=== PATIENT | male | born 1955 | race Caucasian/White ===

== ENCOUNTER 2021-02-20 09:22 | Inpatient (IN) | payer MEDICARE, MEDICAID, SELFPAY ==
[2021-02-20] VITALS (13 sets, daily range): BP systolic 101–144; BP diastolic 61–108; PULSE 95–149; RESP 16–32; TEMP 36.3–36.8; O2SAT 97–100; BMI 34.2
--- NOTE | ~2021-02-20 | XR_ITS ---
EXAMINATION: XR chest 1V portable EXAM DATE: 02/20/2021 11:15 INDICATION: Weakness. TECHNIQUE: Portable AP frontal chest x-ray was obtained. There is no prior study for comparison. FINDINGS: Suspect some ill-defined left basilar airspace disease could be developing acute infectious process. The cardiomediastinal silhouette is prominent but magnified on this AP technique. There is no pneumothorax suspected. There are no pleural effusions. There are no osseous abnormalities identif ied. IMPRESSION: Ill-defined left basilar opacity could be developing acute infectious process. Reviewed, dictated and finalized at location A. IMPRESSION: Ill-defined left basilar opacity could be developing acute infectio us process.
--- NOTE | ~2021-02-20 | US_ITS ---
EXAMINATION: US venous doppler [facility] DATE: 02/20/2021 11:58 INDICATION: Weakness. TECHNIQUE: Grayscale ultrasound images without and with compression and Doppler ultrasound images of the bilateral lower extremity veins were obtained. COMPARISON: None. FINDINGS: The visualized portions of right common femoral vein, profunda (deep) femoral vein, femoral vein, pop liteal vein, peroneal veins, posterior tibial veins, and greater saphenous vein outflow are patent. The visualized portions of left common femoral vein, profunda femoral vein, femoral vein, popliteal v ein, peroneal veins, posterior tibial veins, and greater saphenous vein outflow are patent. IMPRESSION: 1. No deep venous thrombosis. Reviewed, dictated and finalized at location A.
--- NOTE | ~2021-02-20 | US_ITS ---
EXAMINATION: US abdomen limited DATE: 02/22/2021 10:49 INDICATION: Abnormal liver function tests. TECHNIQUE: Multiple grayscale and Doppler ultrasound images of the abdomen were obtained. COMPARISON: CT abdomen and pelvis 02/20/2021 FINDINGS: The visualized portion of the head of the pancreas is normal. There is diffuse hepatic stea tosis. No liver surface nodularity. There is normal flow in main portal vein. The gallbladder is cont racted. No gallstones or sonographic Moreno sign. The common duct is normal and measures 3 mm. IMPRESSION: 1. Diffuse hepatic steatosis. Reviewed, dictated and finalized at location A.
--- NOTE | ~2021-02-20 | CT_ITS ---
EXAMINATION: CTA chest PE protocol EXAM DATE: 02/28/2021 14:28 INDICATION: Hypoxia, shortness of breath. Renal cell cancer. TECHNIQUE: Spiral CTA of the chest (pulmonary arteries) was performed with 100 cc Omnipaque 350 intr avenous contrast injection. Images were acquired during the pulmonary arterial phase. Coronal maxi mum intensity projection 3D-reconstructions were created by the technologist on dedicated workstation . Axial, coronal and sagittal reformatted images were reviewed. The dose-length product (DLP) for t his examination was 995.23 mGy-cm. The exposure was tailored according to patient size (auto mA exp osure control), and iterative reconstruction (ASIR) was used as additional dose reduction technique. Comparison is made to prior examination from 02/20/2021. FINDINGS: Pulmonary arteries are well opacified and without intraluminal filling defects. No thora cic aortic dissection. Dependent subsegmental atelectasis. There are no pleural or pericardial effu sions. Tracheobronchial tree is patent. There is no mediastinal, hilar or axillary lymphadenopath y. There is no pneumothorax. Mild cardiomegaly. There is mild coronary arterial calcification, a rterial sclerosis. Development of small to moderate perihepatic ascites. Contracted gallbladder. Fuller bacute appearing sternal and rib fractures. Mild lower thoracic chronic appearing compression fractur es. IMPRESSION: 1. Interval development mild cardiomegaly. 2. Persistent dependent subsegmental atelectasis. 3. Small to moderate perihepatic ascites. 4. Subacute sternal, rib fractures. Reviewed, dictated and finalized at location B.
--- NOTE | ~2021-02-20 | CT_ITS ---
EXAMINATION: CT chest abdomen pelvis wo con DATE: 02/20/2021 15:39 INDICATION: Neoplasm. Fall one week prior and weakness. TECHNIQUE: Computed tomography (CT) of the chest, abdomen, and pelvis was performed without intraveno us contrast. Automated exposure control and iterative reconstruction technique were employed. The dos e-length product was 1564.26 mGy-cm. COMPARISON: None FINDINGS: CHEST CT: Dependent atelectasis in the bilateral lower lobes. There is additional bandlike discoid atelectasis in the right lower lobe and a linear discoid atelectasis in the left lower lobe and lingula. No pneum onia, pulmonary edema, pleural effusion or pneumothorax. Heart size is normal. Atherosclerotic lockwood ry artery calcification. No pericardial effusion. Thoracic aorta is normal in caliber with mild scatt ered atherosclerotic calcific location. No pathologically enlarged thoracic lymphadenopathy. Old heal ed sternal fracture. ABDOMEN/PELVIS CT: Diffuse hepatic steatosis. Gallbladder, spleen and bilateral adrenal glands are normal. Suture lines and scarring at the upper pole of the right kidney suggesting prior partial nephrectomy for renal jany l carcinoma. Correlate with surgical history. Low-attenuation bilateral renal cysts, the largest on t he left at the upper pole measuring 3.5 cm. Soft tissues about the tail of the pancreas which could r epresent a combination of atherosclerotic calcification of the splenic artery and destructive parench ymal skin ulceration at the periphery of the pancreas, bladder and potentially related to sequela of chronic pancreatitis. Couple gas-filled duodenal diverticulum along the medial side of the second por tion of the duodenum. Retroperitoneal edema/fat stranding beginning in the upper abdomen centered abo ut the head of the pancreas and extending caudally into the pelvis. Mild scattered colonic diverticul osis without adjacent inflammatory change to suggest diverticulitis. No bowel obstruction. The previo us noted retroperitoneal inflammatory stranding extends caudally along the bilateral anterior pararen al spaces, and the right abutting the otherwise normal-appearing appendix. No more focal periappendic eal inflammatory stranding to more specifically suggest acute appendicitis. Bladder is normal. No armand e intraperitoneal gas or fluid. No pathologically enlarged abdominal or pelvic lymphadenopathy. Calci fied likely injection granulomata the subcutaneous fat at the bilateral buttocks. Multiple chronic ap pearing compression fractures with mild vertebral body height loss in the lumbar and lower thoracic s pine. IMPRESSION: 1. Diffuse retroperitoneal edema extending from the abdomen into the pelvis. There is some calcificat ion at the tail the pancreas suggesting possibility of acute on chronic pancreatitis and would correl ate with amylase and lipase levels. No other acute intrathoracic, abdominal or pelvic process. 2. Diffuse hepatic steatosis. 2. Scarring and suture lines at the upper pole of the right kidney consistent with likely partial nep hrectomy for renal cell carcinoma. Correlate with surgical history. 3. Mild scattered diverticulosis. Reviewed, dictated and finalized at location B. IMPRESSION: 1. Diffuse retroperitoneal edema extending from the abdomen into the pelvis. Th ere is some calcification at the tail the pancreas suggesting possibility of ac duane on chronic pancreatitis and would correlate with amylase and lipase levels. No other acute intrathoracic, abdominal or pelvic process. 2. Diffuse hepatic steatosis. 2. Scarring and suture lines at the upper pole of the right kidney consistent w ith likely partial nephrectomy for renal cell carcinoma. Correlate with surgica l history. 3. Mild scattered diverticulosis.
--- NOTE | ~2021-02-20 | US_ITS ---
EXAMINATION: US venous doppler LE EXAM DATE: 02/28/2021 14:12 INDICATION: Hypoxia. TECHNIQUE: Multiple grayscale, color flow and Doppler images of the lower extremity deep venous syste ms bilaterally were obtained and reviewed. Comparison is made to prior examination from 02/20/2021. FINDINGS: Right side: The right common femoral, femoral and profunda veins demonstrate normal color flow, respi ratory variation, augmentation and compressibility. Compressibility, color flow confirmed within the right popliteal, posterior tibial, peroneal, and greater saphenous veins. Left side: The left common femoral, femoral and profunda veins demonstrate normal color flow, respira tory variation, augmentation and compressibility. Compressibility, color flow confirmed within the l eft popliteal, posterior tibial, peroneal, and greater saphenous veins. IMPRESSION: 1. No lower extremity deep venous thrombosis bilaterally. Reviewed, dictated and finalized at location B.
--- NOTE | ~2021-02-20 | CT_ITS ---
EXAMINATION: CT brain wo [facility] EXAM DATE: 02/20/2021 12:06 INDICATION: Fall, weakness. TECHNIQUE: Spiral CT of the head was performed without contrast. Axial, coronal and sagittal images were reviewed. The dose-length product (DLP) for this examination was 681.00 mGy-cm. The exposure w as tailored according to patient size, and iterative reconstruction (ASIR) was used as additional dos e reduction technique. There is no prior study for comparison. FINDINGS: There is no acute intraparenchymal hemorrhage. No evidence of intraparenchymal brain mass lesion. No evidence of acute infarction. Please note that initial head CT has limited sensitivity f or small or acute infarctions. There is mild to moderate periventricular and subcortical hypodensity, nonspecific but probably related to small vessel ischemic disease. There is mild to moderate promi nence of the sulci and ventricles related to cerebral atrophy. There is intracranial carotid arteri osclerosis. There are no extra-axial collections. There is no mass effect or midline shift. The or bits are unremarkable. Soft tissue is unremarkable. The visualized sinuses and mastoid air cells ar e well aerated. IMPRESSION: 1. No acute intracranial findings. 2. Chronic age related findings. Reviewed, dictated and finalized at location A.
--- NOTE | ~2021-02-20 | XR_ITS ---
EXAMINATION: XR chest 2V EXAM DATE: 02/27/2021 14:17 INDICATION: Hypoxia, dyspnea . TECHNIQUE: Frontal and lateral projections of the chest obtained and reviewed. Comparison is made to prior examination from 02/20/2021. FINDINGS: Low lung volume. Bibasilar airspace disease at least partly atelectasis given the volume l oss. Left basilar pneumonia not excludable. No confluent consolidation, pneumothorax or pleural effus ion suspected. There is no pneumothorax suspected. There are no pleural effusions. The cardiomediasti nal silhouette is prominent but magnified on this AP technique. There are no osseous abnormalities id entified. IMPRESSION: Bibasilar subsegmental atelectasis. Left basilar pneumonia not excludable. Reviewed, dictated and finalized at location B. IMPRESSION: Bibasilar subsegmental atelectasis. Left basilar pneumonia not excl udable.
--- NOTE | 2021-02-20 09:33 | ECG_ITS ---
Measurements Intervals [place] Rate: 131 P: MI: 0 QRS: 10 QRSD: 85 T: -9 QT: 349 QTc: 515 Interpretive Statements ATRIAL FIBRILLATION WITH RAPID VENTRICULAR RESPONSE BASELINE ARTIFACT- I, II, III, AVR, AVL, AVF, V1-V6 ABNORMAL ECG Electronically Signed On 02-20-2021 11:21:10 CDT by Jono Woods D.O.
[2021-02-20 10:38] LABS: Basophils Percent Auto 0.8 % (0.2-1.2); Eosinophils Absolute Auto 0.1 K/mm3 (0-0.3); Eosinophils Percent Auto 1.5 % (0-4.4); Hematocrit 46.4 % (42.0-52.0); Hemoglobin 14.7 g/dL (14.0-18.0); Immature Granulocyte Absolute 0.02 K/mm3 (0.00-0.031); Immature Granulocyte Percent A 0.4 % (0-0.5); Immature Platelet Fraction Pct 7.2 % (0.9-11.2); Lymphocytes Absolute Auto 0.97 K/mm3 (0.9-3.2); Lymphocytes Percent Auto 20.5 % (18.3-44.2); Mean Corpuscular HGB Conc 31.7 g/dl (32-36); Mean Corpuscular Volume 104.3 fl (80-100); Mean Platelet Volume 10.7 fl (7.4-10.4); Monocytes Absolute Auto 0.5 K/mm3 (0.1-0.6); Monocytes Percent Auto 10.4 % (2.6-8.5); Neutrophils Absolute Auto 3.1 K/mm3 (1.3-6.7); Neutrophils Percent Auto 66.4 % (45.5-73.1); Platelet Count Result 65 k/mm3 (150-375); Red Blood Count 4.45 M/mm3 (4.6-6.20); Red Cell Distribution Width 14.3 % (11.5-14.5); White Blood Count 4.7 K/mm3 (4.5-10.0)
[2021-02-20 10:52] LABS: Alanine Aminotransferase 49 U/L (4-50); Albumin Level 3.6 g/dL (3.5-5.1); Alkaline Phosphatase 309 U/L (38-126); Anion Gap 12 mmol/L (8-16); Aspartate Amino Transferase 82 U/L (17-59); Bilirubin,Total 5.2 mg/dL (0.2-1.3); Blood Urea Nitrogen 13 mg/dL (9-20); Calcium 9.1 mg/dL (8.4-10.2); Carbon Dioxide 24 mmol/L (22-30); Chloride 95 mmol/L (98-107); Estimated CRCL calculation 83 ml/min; Estimated Glomerular Filt Rate > 60; Glucose 90 mg/dL (65-110); Potassium 3.8 mmol/L (3.4-5.0); Sodium 131 mmol/L (137-145)
[2021-02-20 11:29] LABS: INR 1.1; Prothrombin Time 13.8 Seconds (11.1-14.7)
[2021-02-20 11:30] LABS: Partial Thromboplastin Time 35.6 SECONDS (22.3-36.8)
[2021-02-20 11:32] LABS: D Dimer 0.47 ug/mL (<0.48)
[2021-02-20 11:33] LABS: Lactic Acid Reflex 1.2 mmol/L (0.7-2.1)
[2021-02-20] MEDS: LACTATED RINGERS 1,000 ML 999 ML IV CONT (11:37)
[2021-02-20 11:44] LABS: Magnesium 1.9 mg/dL (1.6-2.3)
[2021-02-20 11:45] LABS: NT Pro B Type Natriuretic Pept 5120 pg/mL (5-100); Troponin I 0.021 ng/mL (0.000-0.034)
[2021-02-20 11:56] LABS: Creatine Kinase 474 U/L (55-170)
[2021-02-20] MEDS: dilTIAZem HCl INJ 25 MG/5 ML VIAL 15 MG IV PUSH (13:06)
[2021-02-20 13:44] LABS: Add Urine Microscopic? YES; Appearance Urine Clear (Clear); Bilirubin Urine Negative (Negative); Blood Urine 1+ (Negative); Color Urine Amber (Yellow); Glucose Urine UA Negative (Negative); Ketones Urine 1+ mg/dL (Negative); Leukocyte Esterase Ur Negative LEU/UL (Negative); Nitrate Urine Negative (Negative); Protein Urine 1+ mg/dL (Negative); RBC Urine 0-2 /hpf (0-2); Specific Grav Ur 1.021 (1.001-1.035)
--- NOTE | 2021-02-20 13:52 | ED.GENADULT ---
HPI - General Adult General Chief complaint: Weakness <Dimitrios Alegre PA-C - Last Filed: 02/20/21 14:45> Stated complaint: weakness <Dimitrios Alegre PA-C - Last Filed: 02/20/21 14:45> Time Seen by Provider: 02/20/21 10:52 <Dimitrios Alegre PA-C - Last Filed: 02/20/21 14:45> Source: patient, EMS and RN notes reviewed <Dimitrios Alegre PA-C - Last Filed: 02/20/21 14:45> Mode of arrival: EMS <Dimitrios Alegre PA-C - Last Filed: 02/20/21 14:45> Limitations: no limitations <Dimitrios Alegre PA-C - Last Filed: 02/20/21 14:45> History of Present Illness HPI narrative: Patient is a 65-year-old male who presents from home per EMS noting that for the last week he has lied on the floor with inability to get up was at home by himself he attributes this to weakness patient notes history of possible kidney cancer untreated as well as other medical history for which she has not taken any of his prescribed medications in the last year he is a poor historian to his medication history on arrival he does not appear distress but is chronically ill-appearing patient notes he has been unable to get up he has not been eating or drinking. <Dimitrios Alegre PA-C - Last Filed: 02/20/21 14:45> Related Data Allergies/adverse reactions: Allergies Allergy/AdvReac Type Severity Reaction Status Date / Time No Known Allergies Allergy Unverified 02/16/15 18:31 <Dimitrios Alegre PA-C - Last Filed: 02/20/21 14:45> Review of Systems Review of Systems: All systems reviewed & are unremarkable except as noted in HPI and below <Dimitrios Alegre PA-C - Last Filed: 02/20/21 14:45> FOR[facility]LY [facility], [facility] Past Medical History Medical History: Medical History (Updated 02/20/21 @ 16:10 by Cat Ndiaye PA-C) Atrial fibrillation Hypertension Noncompliance <Dimitrios Alegre PA-C - Last Filed: 02/20/21 14:45> Surgical History Surgical History: Surgical History History of orthopedic surgery <Dimitrios Alegre PA-C - Last Filed: 02/20/21 14:45> Social History Social History: Social History (Updated 02/20/21 @ 16:05 by Cat Ndiaye PA-C) Social History: Surrogate decision maker: Wen Harden, significant other. Code status: Full code. Smoking status: Never smoker Additional living arrangements comments: Resides in [place] with his significant other. Additional occupation/education comments: Retired. <Dimitrios Alegre PA-C - Last Filed: 02/20/21 14:45> Exam Narrative: GENERAL: Chronically ill l-appearing, obese, and in no acute distress. HEAD: Normocephalic, atraumatic. EYES: PERRLA and EOMI. ENT: Nares clear, no rhinorrhea or epistaxis. Mucous membranes dry. NECK: Supple. No adenopathy or masses. CHEST: Clear to auscultation. No respiratory distress. No wheezes rales or rhonchi HEART: Irregularly irregular rate and rhythm. No murmur heard. Normal peripheral pulses. ABDOMEN: Soft, nontender, nondistended EXTREMITIES: Normal range of motion. 1+ edema to the lower extremities SKIN: Warm, dry, no rash. NEURO: No focal deficits. Alert and oriented x3. Cranial nerves II through XII grossly intact PSYCH: Normal mood and affect. <Dimitrios Alegre PA-C - Last Filed: 02/20/21 14:45> Course Course Emergency Course: Patient presented for evaluation of weakness was found to be in A. fib with RVR started on Cardizem drip after bolus will be placed in hospital for further evaluation to the hospitalist service who wants a CAT scan chest abdomen pelvis for concern for cancer given his history of untreated kidney cancer that he reports patient at this time is in the room in no distress agreeing to stay in hospital he is aware of his case findings treatment plan and diagnosis and agrees with the plan for inpatient therapy given his weakness. Imaging and blood work was obtained. <JULIETTE Ricketts
[2021-02-20 13:59] LABS: Amphetamine Screen Urine Negative (Negative); Barbiturate Screen Urine Negative (Negative); Benzodiazepines Screen Urine Positive (Negative); Cannabinoid Screen Urine Negative (Negative); Cocaine Screen Urine Negative (Negative); Methadone Screen Urine Negative (Negative); Opiate Screen Urine Negative (Negative); Phencyclidine Screen Urine Negative (Negative)
[2021-02-20 14:34] LABS: Troponin I 0.018 ng/mL (0.000-0.034)
[2021-02-20] MEDS: SODIUM CHLORIDE 0.9% IV 1,000 ML 75 ML IV CONT (15:03)
[2021-02-20] MEDS: LORazepam INJ (*CRX) 2 MG/ML VIAL 0.5 MG IV PUSH (15:03)
[2021-02-20 15:29] LABS: Cholesterol 152 mg/dL (0-200); HDL Direct 68 mg/dL; Triglycerides 111 mg/dL (<150)
[2021-02-20 15:42] LABS: LDL Cholesterol Direct 63 mg/dL
--- NOTE | 2021-02-20 16:00 | PM.IMHP ---
H&P: HPI History of Present Illness Date/Time: 02/20/21 16:00 Chief Complaint: Weakness. Narrative: This is a 65-year-old male with history of hypertension, atrial fibrillation, and anxiety who presented to the emergency department earlier today via EMS from home for evaluation of weakness. He is not a great historian and as such some of the following is obtained via a review of his electronic medical records. I have been trying to get a hold of his significant other, Wen, to no avail. The patient lives at home with his girlfriend who has reportedly been out of town for a week. When she returned home today, he was found lying on the floor and he was brought in today via EMS. He is not able to tell me exactly when he fell but he does remember feeling a bit dizzy the next thing he knew he woke up on the floor. He believes he has been on the floor for several days. He denies injuring himself in the fall but somewhat unusually he was not able to get himself up nor was he able to crawl to a phone to call for help. After lot of repeat questioning, the patient does admit that he has a history of drinking alcohol daily, at least 5 beers a day, and he tells me that he quit drinking about 2 weeks ago. He also tells me he has a history of alcohol withdrawal seizures though I am not sure the information he is giving me is 100% accurate. In any event he was found to be in atrial fibrillation with rapid ventricular response for which he has been started on a Cardizem drip and admitted to IMU. At the time my evaluation he has no specific complaints and tells me he is feeling better. He specifically denies current headache, neck ache, auditory and visual changes, focal weakness, paresthesias, chest pain, pleuritic pain, shortness of breath, cough, cold and flu symptoms, abdominal pain, nausea, vomiting, diarrhea, and dysuria. He does admit to not always being compliant with his home medications though he is requesting Xanax at this time. Review of Systems Review of Systems: Twelve systems were reviewed with pertinent positives and negatives as per HPI. Limited as he is not a great historian as above. Except as documented in HPI, all systems were reviewed and are negative. [facility] Past Medical History Medical History (Updated 02/20/21 @ 23:13 by Cat Ndiaye PA-C) Anxiety Atrial fibrillation Cerebrovascular accident Daily consumption of alcohol Gastroesophageal reflux disease Hypertension Noncompliance Renal cell carcinoma of right kidney Surgical History Surgical History (Updated 02/20/21 @ 23:05 by Cat Ndiaye PA-C) History of partial nephrectomy Right partial nephrectomy for renal cell carcinoma. History of right knee surgery Family History Family History (Updated 02/20/21 @ 23:06 by Cat Ndiaye PA-C) Other Family history unknown Social History Social History (Updated 02/20/21 @ 23:06 by Cat Ndiaye PA-C) Social History: Surrogate decision maker: Wen Harden, significant other. Code status: Full code. Smoking status: Never smoker Alcohol intake: former Alcohol use details: Patient reportedly drank 5 beers nightly up until 2 weeks ago. Substance use: never Substance use type: does not use Additional living arrangements comments: Resides in [place] with his significant other. Additional occupation/education comments: Retired. Meds Home Medications and Allergies Home Medications Medication Instructions Recorded Confirmed Type No Home Medications 02/20/21 02/20/21 History Allergies Allergy/AdvReac Type Severity Reaction Status Date / Time No Known Allergies Allergy Unverified 02/16/15 18:31 Vital Signs Vital Signs - 24 hr 02/20/21 09:34 02/20/21 10:50 02/20/21 13:07 Temperature 97.3 F L Pulse Rate 103 H 149 H 130 H Respiratory Rate 20 32 H Blood Pressure 112/93 H 144/108 H 134/93 H Pulse Oximetry 99 99 02/20/21 13:50 02/20/21 14:58 Tempera
[2021-02-20 17:43] LABS: Lipase 111 U/L (23-300)
[2021-02-20 17:55] LABS: Troponin I 0.018 ng/mL (0.000-0.034)
--- NOTE | 2021-02-20 17:56 | ADMGEN ---
This patient, Connor Roque, was admitted to IMU Room 211-01. Patient/family oriented to hospital policies and general routines including ID bracelet, bed and alarms, visiting hours, pain management, procedures, bathroom and other care routines, personal items, smoking policy, room service/diet, and visiting hours. Information on how to activate the Rapid Response Team has been discussed. Patient/Family are encouraged to report perceived risks to care and to ask questions if they do not understand what they are told or what they should do.
[2021-02-20] MEDS: THIAMINE HCL 200 MG/2 ML VIAL 100 MG IV PUSH (23:59)
[2021-02-21] VITALS (20 sets, daily range): BP systolic 99–124; BP diastolic 51–90; PULSE 78–120; RESP 12–22; TEMP 36.3–36.9; O2SAT 93–98
[2021-02-21 00:15] LABS: Creatine Kinase 272 U/L (55-170)
[2021-02-21 01:08] LABS: Hepatitis B Surface Antigen Negative (Negative)
[2021-02-21 01:14] LABS: HAV RESULT Negative (Negative); Hepatitis B Core IgM Result Negative (Negative)
[2021-02-21 01:25] LABS: Hepatitis C Virus Antibody Negative (Negative)
[2021-02-21] MEDS: ALPRAZolam (*CRX) 0.25 MG TABLET PO ×3 (01:30→20:25)
[2021-02-21 04:57] LABS: Hematocrit 42.9 % (42.0-52.0); Hemoglobin 13.8 g/dL (14.0-18.0); Immature Platelet Fraction Pct 5.6 % (0.9-11.2); Mean Corpuscular HGB Conc 32.2 g/dl (32-36); Mean Corpuscular Hemoglobin 33.3 pg (26-34); Mean Corpuscular Volume 103.6 fl (80-100); Mean Platelet Volume 9.7 fl (7.4-10.4); Platelet Count Result 75 k/mm3 (150-375); Red Blood Count 4.14 M/mm3 (4.6-6.20); Red Cell Distribution Width 14.4 % (11.5-14.5)
[2021-02-21 05:18] LABS: Alanine Aminotransferase 44 U/L (4-50); Albumin Level 3.3 g/dL (3.5-5.1); Alkaline Phosphatase 263 U/L (38-126); Anion Gap 4 mmol/L (8-16); Aspartate Amino Transferase 71 U/L (17-59); Bilirubin,Total 3.3 mg/dL (0.2-1.3); Blood Urea Nitrogen 13 mg/dL (9-20); Calcium 8.6 mg/dL (8.4-10.2); Carbon Dioxide 27 mmol/L (22-30); Chloride 102 mmol/L (98-107); Creatine Kinase 226 U/L (55-170); Estimated CRCL calculation 83 ml/min; Estimated Glomerular Filt Rate > 60; Glucose 101 mg/dL (65-110); Magnesium 1.7 mg/dL (1.6-2.3); Potassium 3.9 mmol/L (3.4-5.0); Sodium 133 mmol/L (137-145)
[2021-02-21] MEDS: THIAMINE HCL 100 MG TABLET PO (08:27)
[2021-02-21] MEDS: FOLIC ACID 1 MG TABLET PO (08:27)
[2021-02-21] MEDS: ASPIRIN 81 MG CHEWABLE TABLET PO (08:28)
--- NOTE | 2021-02-21 08:49 | PCPTNOTE ---
Checked on patient at 8:45 a.m. for evaluation and patient will not be seen due to medical status. Nursing to put in Hold Order. He is on continuous BIPAP right now.
--- NOTE | 2021-02-21 09:55 | PCPTNOTE ---
PT attempted to do evaluation at 9:55 a.m. Pt eating and asked me to return.
[2021-02-21 10:22] LABS: Hematocrit 45.1 % (42.0-52.0); Hemoglobin 14.5 g/dL (14.0-18.0); Immature Platelet Fraction Pct 8.6 % (0.9-11.2); Mean Corpuscular HGB Conc 32.2 g/dl (32-36); Mean Corpuscular Volume 102.5 fl (80-100); Mean Platelet Volume 11.3 fl (7.4-10.4); Platelet Count Result 72 k/mm3 (150-375); Red Cell Distribution Width 14.4 % (11.5-14.5)
[2021-02-21 10:40] LABS: Alanine Aminotransferase 49 U/L (4-50); Albumin Level 3.9 g/dL (3.5-5.1); Alkaline Phosphatase 305 U/L (38-126); Anion Gap 8 mmol/L (8-16); Aspartate Amino Transferase 79 U/L (17-59); Bilirubin,Total 4.2 mg/dL (0.2-1.3); Blood Urea Nitrogen 13 mg/dL (9-20); Carbon Dioxide 23 mmol/L (22-30); Chloride 103 mmol/L (98-107); Creatine Kinase 244 U/L (55-170); Estimated CRCL calculation 91 ml/min; Estimated Glomerular Filt Rate > 60; Glucose 117 mg/dL (65-110); Lipase 145 U/L (23-300); Sodium 134 mmol/L (137-145)
--- NOTE | 2021-02-21 13:43 | PM.IMPN ---
Progress Note: A&P Assessment and Plan (1) Atrial fibrillation with RVR: Code(s): I48.91 - Unspecified atrial fibrillation Status: Acute Assessment and Plan: Patient has a history of atrial fibrillation. He is currently on a Cardizem drip and rates have improved in the low 100s. Appreciate cardiology consultation [id number] score is 2 thus anticoagulation would be indicated though he has moderate thrombocytopenia with a platelet count of 72 K and seems to be a fall risk thus will hold on anticoagulation pending further workup in PT/OT evaluation. Appreciate Cardiology recommendations Echocardiogram pending. TSH within normal limits Monitor on telemetry (2) Elevated LFTs: Code(s): R79.89 - Other specified abnormal findings of blood chemistry Status: Acute Assessment and Plan: Abdominal exam benign. May be related to mild rhabdomyolysis or alcohol abuse. Hepatic steatosis noted CT scan. Right upper quadrant ultrasound has been ordered GGT pending. Hepatitis panel negative (3) Elevated CK: Code(s): R74.8 - Abnormal levels of other serum enzymes Status: Acute Assessment and Plan: Likely mild rhabdomyolysis from being on the ground for unknown length of time. CK 272 on arrival, mild improvement to 244 today. Continue with gentle IV fluids (4) Generalized weakness: Code(s): R53.1 - Weakness Status: Acute Assessment and Plan: Secondary to a combination of the above and also suspect overall physical deconditioning. He reports he is very sedentary at home has difficulty getting around. Fall precautions implemented Appreciate PT/OT consultation Care coordination following. He would like to return home on discharge but based on his reports of not being able to dress or clean himself at home, may need to consider options for care (5) Daily consumption of alcohol: Code(s): Z78.9 - Other specified health status Status: Acute Assessment and Plan: Patient reportedly drank about 5 beers each day but quit drinking 1.5 weeks ago. 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 Continue with CIWA protocol. CIWA scores have been 0-2 Continue with thiamine and folic acid Congratulated him on alcohol cessation and encouraged continued avoidance of alcohol (6) Anxiety: Code(s): F41.9 - Anxiety disorder, unspecified Status: Acute Assessment and Plan: Alprazolam TID p.r.n. (7) Abnormal CT scan: Code(s): R93.89 - Abnormal findings on diagnostic imaging of other specified body structures Status: Acute Assessment and Plan: CT abdomen/pelvis showed diffuse retroperitoneal edema with some calcification at the tail the pancreas, concerning for acute on chronic pancreatitis. He denies abdominal pain. He is tolerating his diet. Lipase is within normal limits. No further intervention at this time. May benefit from GI evaluation as an outpatient. (8) Dehydration: Code(s): E86.0 - Dehydration Status: Acute Assessment and Plan: Appeared dry on presentation. He has been rehydrated with IV fluids and is euvolemic on exam. Tolerating diet. Subjective Date/time seen: 02/21/21 13:43 Interval history: Date of service: 02/21/2021 Connor Roque is a 65-year-old male with history of atrial fibrillation not on anticoagulation therapy, CVA, hypertension, renal cell carcinoma of right kidney s/p partial nephrectomy, anxiety, and daily alcohol abuse who is seen in follow-up for atrial fibrillation with rapid ventricular response and generalized weakness. He is feeling better today. His biggest complaint is his generalized weakness. He reports this is improving and he was able to get up to the commode today with a walker and the assistance of an aide. He still feels unsteady on his feet. He also complains of being pretty anxious. Denies chest pain. No
--- NOTE | 2021-02-21 14:48 | PM.CNCAR ---
Assessment and Plan Assessment and plan (1) Atrial fibrillation with RVR: Code(s): I48.91 - Unspecified atrial fibrillation Status: Acute Assessment and Plan: Unknown duration. He likely has had atrial fibrillation with rapid ventricular response for significant period time is and some heart failure because of it. Will stop his diltiazem drip at this point. Start him on metoprolol 25 mg p.o. b.i.d. and up titrate as able or needed basis for rate control. 2D echocardiogram Doppler will be ordered and reviewed. For now will initiate Xarelto at 20 mg daily but will need to ensure that he is not a significant fall risk and that he will be able to afford this medication. Stop aspirin. (2) Congestive heart failure: Code(s): I50.9 - Heart failure, unspecified Status: Acute Assessment and Plan: Will start beta-yang. Echocardiogram is pending. Will add Syd or Arb depending on blood pressure tolerance. (3) Hypertension: Code(s): I10 - Essential (primary) hypertension Status: Acute Assessment and Plan: At goal (4) Noncompliance: Code(s): Z91.19 - Patient's noncompliance with other medical treatment and regimen Status: Acute (5) History of stroke: Code(s): Z86.73 - Personal history of transient ischemic attack (TIA), and cerebral infarction without residual deficits Status: Acute (6) Nonsustained ventricular tachycardia: Code(s): I47.2 - Ventricular tachycardia Status: Acute Assessment and Plan: Will replace magnesium 2 g IV x1. History of Present Illness History of Present Illness Consult date/time: 02/21/21 14:48 Requesting physician: Dimitrios Alegre PA-C Consult reason: atrial fibrillation Reason For Visit: A fib with RVR/ generalized weakness Narrative: Date of service 02/21/2021 Requesting provider alla alegre Reason consultation atrial fibrillation History: Patient is a 65-year-old male who has a history of atrial fibrillation, hypertension, stroke. He has a very poor historian but reportedly his girlfriend was out of town and the patient had an episode in which she had fallen. He states that he was too weak to get up and he was on the ground for an unknown period of time. Whenever she returned EMS was called and he was brought to the hospital. He was found to be in atrial fibrillation with rapid ventricular response. Patient states that he has been short of breath by doing most any activity around the house. No paroxysmal nocturnal dyspnea, chest pain, syncope. He has mild lower extremity swelling. He has a history of atrial fibrillation as detailed above and he states that he goes in and out of atrial fibrillation but he cannot feel palpitations. He has had diuresis since coming to the hospital and is feeling better. He denies any chest pain at this point and his heart rate is reasonably controlled with IV diltiazem. He is having some short runs of nonsustained ventricular tachycardia on cafeteria monitor. He has not been taking any medications. Review of Systems Review of Systems: All systems reviewed & are unremarkable except as noted in HPI and below Constitutional: Constitutional: Reports weakness Eyes: Eyes: Denies blurry vision ENT: Reports Normal hearing present Cardiovascular: Cardiovascular: Denies chest pain, Reports pedal edema and Reports leg edema Respiratory: Respiratory: Reports dyspnea Gastrointestinal: Gastrointestinal: Denies abdominal pain Genitourinary: Genitourinary: Denies dysuria and Denies urinary frequency Musculoskeletal: Musculoskeletal: Denies back pain and Denies neck pain Integumentary/Breasts: Skin/Breast: Denies dry skin and Denies unusual bruising Neurologic: Denies headache(s) and Denies numbness Psychiatric: Psychiatric: Denies anxiety and Denies confusion Endocrine: Endocrine: Denies fatigue and Denies flushing Hematologic/Lymphatic: Hematologic/Lymphati
[2021-02-21] MEDS: MAGNESIUM SULF 2 GM/WATER 50ML 2 GM/50 ML BAG IVPB (15:15)
[2021-02-21] MEDS: SODIUM CHLORIDE 0.9% IV 1,000 ML 75 ML IV CONT (15:16)
[2021-02-21] MEDS: METOPROLOL TARTRATE 25 MG TABLET PO ×2 (15:23→20:25)
[2021-02-21] MEDS: RIVAROXABAN 20 MG TABLET PO (17:00)
[2021-02-22] VITALS (13 sets, daily range): BP systolic 109–131; BP diastolic 74–97; PULSE 59–110; RESP 12–20; TEMP 36.6–37.1; O2SAT 95–99
--- NOTE | 2021-02-22 | ECHO_ITS ---
Patient Info Name: Connor Roque Age: 65 years : 1955 Gender: Male Ht: 72 in Wt: 252 lbs BSA: 2.45 m2 HR: 100 bpm BP: 128 / 89 mmHg Heart Rhythm: Atrial Fibrillation Technical Quality: Good Exam Date: 02/22/2021 11:09 AM Exam Location: [facility] Patient Status: Inpatient Admit Date: 02/21/2021 Staff Ordering Physician: Luiz Quinonez MD Wet Process Assistant Head Miller: KRISTA Attending Provider: Tricia Holley PA-C Referring Physician: Cristiano BLACK; Exam Type: CA echo doppler color flow Study Info Indications I48.1 - Persistent atrial fibrillation Complete two-dimensional, color flow and Doppler transthoracic echocardiogram is performed. Summary 1. Complete two-dimensional, color flow and Doppler transthoracic echocardiogram is performed. 2. Left ventricular chamber dimension is mildly enlarged. 3. Left ventricular systolic function is moderately reduced, estimated at 40-45%. 4. There is mildly increased left ventricular wall thickness. 5. The left ventricular diastolic function is indeterminate. 6. The basal anteroseptal is akinetic. 7. The mid anteroseptal is hypokinetic. 8. Left atrial chamber dimension is severely enlarged. 9. Right atrial chamber dimension is severely enlarged. 10. Right ventricular chamber dimension is severely enlarged. 11. Right ventricular systolic function is reduced. 12. There is mild mitral valve regurgitation. Left Ventricle Left ventricular chamber dimension is mildly enlarged. Left ventricular systolic function is moderately reduced, estimated at 40-45%. There is mildly increased left ventricular wall thickness. The left ventricular diastolic function is indeterminate. The basal anteroseptal is akinetic. The mid anteroseptal is hypokinetic. The apex, inferior wall, anterior wall, inferoseptal wall, and anterolateral wall are not scored. All other [place] appear normal. Right Ventricle Right ventricular chamber dimension is severely enlarged. Right ventricular systolic function is reduced. Left Atria Left atrial chamber dimension is severely enlarged. Right Atria Right atrial chamber dimension is severely enlarged. Atrial Septum Intact interatrial septum visualized by color flow imaging. Aortic Valve The aortic valve is trileaflet. There is mild aortic valve sclerosis. There is no aortic valve stenosis. There is trace aortic valve regurgitation. Pulmonic Valve The pulmonic valve is normal. There is no pulmonic valve stenosis. There is trace pulmonic regurgitation. Mitral Valve The mitral valve has thickened leaflets. There is no mitral valve stenosis. There is mild mitral valve regurgitation. Tricuspid Valve The tricuspid valve leaflets are normal. There is no significant tricuspid valve stenosis. No pulmonary hypertension, estimated pulmonary arterial systolic pressure is 28 mmHg. Pericardium/Pleural The pericardium appears normal. There is no pericardial effusion. Inferior Vena Cava Dilated inferior vena cava with <50% collapse upon inspiration consistent with elevated right atrial pressure, 10 mmHg. Aorta The aortic root size at the sinus of Valsalva is normal. Left Ventricular Outflow Tract Name Value Normal LVOT 2D
[2021-02-22 05:18] LABS: Hematocrit 41.6 % (42.0-52.0); Hemoglobin 13.3 g/dL (14.0-18.0); Immature Platelet Fraction Pct 8.3 % (0.9-11.2); Mean Corpuscular Volume 103.2 fl (80-100); Mean Platelet Volume 10.8 fl (7.4-10.4); Platelet Count Result 75 k/mm3 (150-375); Red Blood Count 4.03 M/mm3 (4.6-6.20); Red Cell Distribution Width 14.4 % (11.5-14.5); White Blood Count 4.1 K/mm3 (4.5-10.0)
[2021-02-22 05:36] LABS: Alanine Aminotransferase 45 U/L (4-50); Albumin Level 3.4 g/dL (3.5-5.1); Alkaline Phosphatase 284 U/L (38-126); Anion Gap 8 mmol/L (8-16); Aspartate Amino Transferase 73 U/L (17-59); Bilirubin,Total 3.3 mg/dL (0.2-1.3); Blood Urea Nitrogen 17 mg/dL (9-20); Calcium 8.9 mg/dL (8.4-10.2); Carbon Dioxide 24 mmol/L (22-30); Chloride 103 mmol/L (98-107); Creatine Kinase 162 U/L (55-170); Estimated CRCL calculation 76 ml/min; Estimated Glomerular Filt Rate > 60; Glucose 117 mg/dL (65-110); Sodium 135 mmol/L (137-145)
[2021-02-22] MEDS: SODIUM CHLORIDE 0.9% IV 1,000 ML 75 ML IV CONT (08:28)
[2021-02-22] MEDS: METOPROLOL TARTRATE 25 MG TABLET PO ×2 (09:07→20:18)
[2021-02-22] MEDS: THIAMINE HCL 100 MG TABLET PO (09:07)
[2021-02-22] MEDS: FOLIC ACID 1 MG TABLET PO (09:07)
[2021-02-22] MEDS: ALPRAZolam (*CRX) 0.25 MG TABLET PO ×2 (09:07→17:18)
--- NOTE | 2021-02-22 12:27 | PM.IMPN ---
Progress Note: A&P Assessment and Plan (1) Atrial fibrillation with RVR: Code(s): I48.91 - Unspecified atrial fibrillation Status: Acute Assessment and Plan: Chronic afib S/p Cardizem drip Rate controlled Cardiology following, recommendation apprecaited Metoprolol 25 mg BID initiated per cards Eliquis initiated and ASA stopped PLT 75, monitor Echocardiogram--> EF 40-45% TSH wnl Tele monitoring (2) Elevated LFTs: Code(s): R79.89 - Other specified abnormal findings of blood chemistry Status: Acute Assessment and Plan: May be related to mild rhabdomyolysis or alcohol abuse Hepatic steatosis noted CT scan Right upper quadrant ultrasound has been ordered-->diffuse hepatic steatosis GGT pending Hepatitis panel negative (3) Elevated CK: Code(s): R74.8 - Abnormal levels of other serum enzymes Status: Acute Assessment and Plan: Likely mild rhabdomyolysis from being on the ground for unknown length of time CK 272-->244--> 162 today S/p IVF (4) Generalized weakness: Code(s): R53.1 - Weakness Status: Acute Assessment and Plan: Multifactorial physical deconditioning He reports he is very sedentary at home has difficulty getting around Fall precautions implemented Appreciate PT/OT consultation Care coordination following Callum will return home on d/c, but based on his reports of not being able to dress or clean himself at home, may need to consider options for care (5) Daily consumption of alcohol: Code(s): Z78.9 - Other specified health status Status: Acute Assessment and Plan: Patient reportedly drank about 5 beers each day but quit drinking 1.5 weeks ago 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 (7) Abnormal CT scan: Code(s): R93.89 - Abnormal findings on diagnostic imaging of other specified body structures Status: Acute Assessment and Plan: CT abdomen/pelvis showed diffuse retroperitoneal edema with some calcification at the tail the pancreas, concerning for acute on chronic pancreatitis Denies abdominal pain Tolerating his diet Lipase is within normal limits No further intervention at this time May benefit from GI evaluation as an outpatient. 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; denies any CP; endorsed ZACARIAS and anxiety Review of Systems Review of Systems: All systems reviewed & are unremarkable except as noted in HPI and below Exam Const: General: no acute distress, alert and awake Orientation/consciousness: patient oriented x3 HENMT: Head: normocephalic and atraumatic Ears: hearing grossly normal bilaterally and external ears normal Face and sinus: face symmetric Mouth: Yes Normal oral and palatal mucosa present Eyes: Pupils: Equal, round and reactive pupils present EOM: EOMs intact bilaterally Neck: Neck: full ROM, trachea midline and no JVD Thyroid: thyroid normal Resp: Effort & Inspection: normal respiratory effort Auscultation: clear to auscultation bilaterally Cardio: Rate: regular rate Rhythm: abnormal rhythm Heart sounds: S1 normal heart sound present and S2 normal heart sound present GI: Inspection: normal to inspection GI Palp: Yes Soft to palpation Percussion: Yes normal to percussio
--- NOTE | 2021-02-22 13:44 | PM.PNCARD ---
Progress Note: A&P Assessment and Plan (1) Atrial fibrillation with RVR: Code(s): I48.91 - Unspecified atrial fibrillation Status: Acute Assessment and Plan: Unknown duration. He likely has had atrial fibrillation with rapid ventricular response for significant period time is and some heart failure because of it. Diltiazem drip has been stopped Started metoprolol 25 mg p.o. b.i.d. Up titrate as able or needed basis for rate control. Rate is reasonably controlled presently - 80's, 90's. Did have some RVR on telemetry this a.m. 2D echocardiogram Doppler showed reduced systolic function, EF 40-45%, severe biatrial enlargement, no significant valve pathology. For now will initiate Xarelto at 20 mg daily but will need to ensure that he is not a significant fall risk and that he will be able to afford this medication. ASA has been stopped (2) Congestive heart failure: Code(s): I50.9 - Heart failure, unspecified Status: Acute Assessment and Plan: 2D echocardiogram Doppler showed reduced systolic function, EF 40-45%, severe biatrial enlargement, no significant valve pathology. On beta yang Will initiate low dose KATI and observe for BP tolerance. (3) Hypertension: Code(s): I10 - Essential (primary) hypertension Status: Acute Assessment and Plan: At goal (4) Noncompliance: Code(s): Z91.19 - Patient's noncompliance with other medical treatment and regimen Status: Acute (5) History of stroke: Code(s): Z86.73 - Personal history of transient ischemic attack (TIA), and cerebral infarction without residual deficits Status: Acute (6) Nonsustained ventricular tachycardia: Code(s): I47.2 - Ventricular tachycardia Status: Acute Assessment and Plan: Has not had any further occurrences of VT. Continue to monitor on telemetry Subjective Date/time seen: 02/22/21 13:44 Review of Systems Review of Systems: All systems reviewed & are unremarkable except as noted in HPI and below Constitutional: Constitutional: Denies fatigue, Denies headache(s) and Reports weakness Eyes: Eyes: Denies blurry vision ENT: Reports Normal hearing present, Denies headache(s) and Denies neck pain Cardiovascular: Cardiovascular: Denies chest pain, Reports pedal edema, Reports leg edema and Reports dyspnea Respiratory: Respiratory: Reports dyspnea Gastrointestinal: Gastrointestinal: Denies abdominal pain Genitourinary: Genitourinary: Denies dysuria and Denies urinary frequency Musculoskeletal: Musculoskeletal: Denies back pain, Denies neck pain and Denies numbness Integumentary/Breasts: Skin/Breast: Denies dry skin and Denies unusual bruising Neurologic: Reports Normal hearing present, Denies confusion, Denies headache(s), Denies numbness and Reports weakness Psychiatric: Psychiatric: Denies anxiety and Denies confusion Endocrine: Endocrine: Denies fatigue and Denies flushing Hematologic/Lymphatic: Hematologic/Lymphatic: Denies easy bleeding Allergic/Immunologic: Allergic/Immunologic: Denies GI upset with certain foods Exam Narrative: Awake alert. Appears stated age Const: General: comfortable and no acute distress; No confusion Orientation/consciousness: No confusion HENMT: General nose exam: Normal nares present Eyes: Sclera: sclerae normal Neck: Neck: supple and no JVD Chest: Other: No reproducible chest wall pain to palpation Resp: Auscultation: clear to auscultation bilaterally Cardio: Rate: tachycardic Rhythm: abnormal rhythm irregularly irregular GI: Auscultation: normal bowel sounds Skin: General skin exam: normal color Neuro: General: No confusion Cranial nerves: Yes Normal hearing present Cognition (Neuro): normal cognition Speech: normal speech Extrem: General: normal to inspection and edema (Mild bilateral lower extremity edema) Psych: Affect: normal affect Objective Data Vital Signs Vit
[2021-02-22] MEDS: RIVAROXABAN 20 MG TABLET PO (16:54)
[2021-02-23] VITALS (16 sets, daily range): BP systolic 104–133; BP diastolic 65–93; PULSE 82–121; RESP 18–24; TEMP 36.1–37; O2SAT 93–97
[2021-02-23] MEDS: ALPRAZolam (*CRX) 0.25 MG TABLET PO ×4 (03:44→23:20)
[2021-02-23] MEDS: FOLIC ACID 1 MG TABLET PO (08:18)
[2021-02-23] MEDS: METOPROLOL TARTRATE 25 MG TABLET PO (08:18)
[2021-02-23] MEDS: THIAMINE HCL 100 MG TABLET PO (08:18)
[2021-02-23] MEDS: lisinopriL 2.5 MG TABLET PO ×2 (08:18→13:00)
[2021-02-23 08:46] LABS: Hemoglobin 13.2 g/dL (14.0-18.0); Immature Platelet Fraction Pct 10.6 % (0.9-11.2); Mean Corpuscular HGB Conc 31.4 g/dl (32-36); Mean Corpuscular Hemoglobin 32.9 pg (26-34); Mean Corpuscular Volume 104.7 fl (80-100); Mean Platelet Volume 11.3 fl (7.4-10.4); Platelet Count Result 81 k/mm3 (150-375); Red Blood Count 4.01 M/mm3 (4.6-6.20); Red Cell Distribution Width 14.5 % (11.5-14.5); White Blood Count 3.9 K/mm3 (4.5-10.0)
[2021-02-23 08:57] LABS: Anion Gap 7 mmol/L (8-16); Blood Urea Nitrogen 14 mg/dL (9-20); Calcium 9.1 mg/dL (8.4-10.2); Carbon Dioxide 21 mmol/L (22-30); Chloride 102 mmol/L (98-107); Estimated CRCL calculation 92 ml/min; Estimated Glomerular Filt Rate > 60; Glucose 114 mg/dL (65-110); Sodium 130 mmol/L (137-145)
--- NOTE | 2021-02-23 11:48 | PCPTNOTE ---
Attempted to see patient for PT, however patient declined. Patient reported he plans on going home today and does not want to work with therapy.
--- NOTE | 2021-02-23 11:52 | PM.PNCARD ---
Progress Note: A&P Assessment and Plan (1) Atrial fibrillation with RVR: Code(s): I48.91 - Unspecified atrial fibrillation Status: Acute Assessment and Plan: Unknown duration. He likely has had atrial fibrillation with rapid ventricular response for significant period time is and some heart failure because of it. Diltiazem drip has been stopped Increase metoprolol 50 mg p.o. b.i.d. Rate is reasonably controlled presently - 80's, 90's. 2D echocardiogram Doppler showed reduced systolic function, EF 40-45%, severe biatrial enlargement, no significant valve pathology. For now will initiate Xarelto at 20 mg daily but will need to ensure that he is not a significant fall risk and that he will be able to afford this medication. ASA has been stopped (2) Congestive heart failure: Code(s): I50.9 - Heart failure, unspecified Status: Acute Assessment and Plan: 2D echocardiogram Doppler showed reduced systolic function, EF 40-45%, severe biatrial enlargement, no significant valve pathology. On beta yang Will increase his lisinopril to 5 mg daily. Also increase his metoprolol to 50 mg p.o. b.i.d. Will need outpatient ischemic evaluation doses found (3) Hypertension: Code(s): I10 - Essential (primary) hypertension Status: Acute Assessment and Plan: At goal (4) Noncompliance: Code(s): Z91.19 - Patient's noncompliance with other medical treatment and regimen Status: Acute (5) History of stroke: Code(s): Z86.73 - Personal history of transient ischemic attack (TIA), and cerebral infarction without residual deficits Status: Acute (6) Nonsustained ventricular tachycardia: Code(s): I47.2 - Ventricular tachycardia Status: Acute Assessment and Plan: Has not had any further occurrences of VT. Continue to monitor on telemetry Subjective Date/time seen: 02/23/21 11:52 Interval history: 65 yo admitted for atrial fibrillation Dtae of Service: NO CP, SOB, palpiations Review of Systems Review of Systems: All systems reviewed & are unremarkable except as noted in HPI and below Constitutional: Constitutional: Denies fatigue, Denies headache(s) and Reports weakness Eyes: Eyes: Denies blurry vision ENT: Reports Normal hearing present, Denies headache(s) and Denies neck pain Cardiovascular: Cardiovascular: Denies chest pain, Reports pedal edema, Reports leg edema and Reports dyspnea Respiratory: Respiratory: Reports dyspnea Gastrointestinal: Gastrointestinal: Denies abdominal pain Genitourinary: Genitourinary: Denies dysuria and Denies urinary frequency Musculoskeletal: Musculoskeletal: Denies back pain, Denies neck pain and Denies numbness Integumentary/Breasts: Skin/Breast: Denies dry skin and Denies unusual bruising Neurologic: Reports Normal hearing present, Denies confusion, Denies headache(s), Denies numbness and Reports weakness Psychiatric: Psychiatric: Denies anxiety and Denies confusion Endocrine: Endocrine: Denies fatigue and Denies flushing Hematologic/Lymphatic: Hematologic/Lymphatic: Denies easy bleeding Allergic/Immunologic: Allergic/Immunologic: Denies GI upset with certain foods Exam Narrative: Awake alert. Appears stated age Const: General: comfortable and no acute distress; No confusion Orientation/consciousness: No confusion HENMT: General nose exam: Normal nares present Eyes: Sclera: sclerae normal Neck: Neck: supple and no JVD Chest: Other: No reproducible chest wall pain to palpation Resp: Auscultation: clear to auscultation bilaterally Cardio: Rate: tachycardic Rhythm: abnormal rhythm irregularly irregular GI: Auscultation: normal bowel sounds Skin: General skin exam: normal color Neuro: General: No confusion Cranial nerves: Yes Normal hearing present Cognition (Neuro): normal cognition Speech: normal speech Extrem: General: normal to inspection and edema (Mild
--- NOTE | 2021-02-23 13:40 | PM.IMPN ---
Progress Note: A&P Assessment and Plan (1) Atrial fibrillation with RVR: Code(s): I48.91 - Unspecified atrial fibrillation Status: Acute Assessment and Plan: Chronic afib S/p Cardizem drip Rate controlled Cardiology following, recommendation apprecaited Metoprolol 25 mg BID initiated per cards Eliquis initiated and ASA stopped PLT 75, monitor Echocardiogram--> EF 40-45% TSH wnl Tele monitoring (2) Elevated LFTs: Code(s): R79.89 - Other specified abnormal findings of blood chemistry Status: Acute Assessment and Plan: May be related to mild rhabdomyolysis or alcohol abuse Hepatic steatosis noted CT scan Right upper quadrant ultrasound has been ordered-->diffuse hepatic steatosis GGT pending Hepatitis panel negative (3) Elevated CK: Code(s): R74.8 - Abnormal levels of other serum enzymes Status: Acute Assessment and Plan: Likely mild rhabdomyolysis from being on the ground for unknown length of time CK 272-->244--> 162 02/22 S/p IVF Will recheck in a.m. (4) Generalized weakness: Code(s): R53.1 - Weakness Status: Acute Assessment and Plan: Multifactorial physical deconditioning He reports he is very sedentary at home has difficulty getting around Fall precautions implemented PT/OT Care coordination following Likely will return home on d/c, but based on his reports of not being able to dress or clean himself at home, may need to consider options for care (5) Daily consumption of alcohol: Code(s): Z78.9 - Other specified health status Status: Acute Assessment and Plan: Patient reportedly drank about 5 beers each day but quit drinking 1.5 weeks ago 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 (7) Abnormal CT scan: Code(s): R93.89 - Abnormal findings on diagnostic imaging of other specified body structures Status: Acute Assessment and Plan: CT abdomen/pelvis showed diffuse retroperitoneal edema with some calcification at the tail the pancreas, concerning for acute on chronic pancreatitis Denies abdominal pain Tolerating his diet Lipase is within normal limits No further intervention at this time May benefit from GI evaluation as an outpatient. (8) Dehydration: Code(s): E86.0 - Dehydration Status: Acute Assessment and Plan: Resolved S/p IV fluids Tolerating diet (9) Congestive heart failure: Code(s): I50.9 - Heart failure, unspecified Status: Acute Assessment and Plan: ECHO-->EF 40-45% BB, ACEI increased per cardiology Monitor (10) Hyponatremia: Code(s): E87.1 - Hypo-osmolality and hyponatremia Status: Acute Assessment and Plan: Na+ 130 today Suspect 2/2 dehydration S/p IVF Will recheck in a.m. 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; denies any CP; endorsed ZACARIAS and anxiety Review of Systems Review of Systems: All systems reviewed & are unremarkable except as noted in HPI and below Exam Const: General: no acute distress, alert and awake Orientation/consciousness: patient oriented x3 HENMT: Head: normocephalic and atraumatic Ears: hearing grossly normal bilaterally and external ears normal Face and sinus: face symmetric Mouth: Yes Normal oral and palatal mucosa present Eyes: Pupils: Equal, round and reactive pupils present EOM: EOMs intact bilaterally Neck: Neck: full ROM, trachea midline and no JVD Thyroid: thyroid normal Resp: Effort & Inspection: normal respiratory effort Auscultation: clear to auscultation bilaterally Cardio: Jugular venous di
--- NOTE | 2021-02-23 14:04 | PCPTNOTE ---
Attempted to see patient for PT, however patient refused.
[2021-02-23] MEDS: RIVAROXABAN 20 MG TABLET PO (16:52)
[2021-02-23] MEDS: METOPROLOL TARTRATE 50 MG TAB PO (20:07)
[2021-02-23] MEDS: LORazepam INJ (*CRX) 2 MG/ML VIAL 1 MG IV PUSH (20:39)
[2021-02-23 21:06] LABS: GGT 646 U/L (3-70)
--- NOTE | 2021-02-23 22:05 | PC.NURSE ---
This patient, Connor Roque, was transferred to room 241 on 02/23/21 at 2157. Personal belongings sent with patient. Report given to VANESSA Casiano. Appropriate documentation sent with patient.
[2021-02-24] VITALS (14 sets, daily range): BP systolic 102–132; BP diastolic 60–81; PULSE 59–107; RESP 18–22; TEMP 36.1–36.6; O2SAT 95–99
--- NOTE | 2021-02-24 01:25 | PM.EVENT ---
Event Note Event Note Event Note: 02/24/2021 at 1:25 a.m. Evidently just prior to being transferred from the IMU the patient became agitated and had some mild confusion. His CIWA score at that time was reportedly 6. After patient was transferred to the medical floor the patient became progressively more agitated and confused. Nursing staff tells me that he is seeing his sit on the couch in his hospital room. He is also confused as to why back couch is in my apartment. He at times he does not realize that he is in the hospital. He is tremulous with his arms extended. He is quite anxious. His CIWA score at this time is 24. The patient has pulled off his telemetry in refuses to wear it. He is already ripped out his IV and nursing staff is unable to place an IV again due to the patient's agitation. The patient had received is p.r.n. Xanax at midnight but his CIWA score remained greater than 20. Thusly, I have ordered 1 dose of IM volume 5 mg and will initiate p.o. Librium 50 mg q.6 hours 1st dose now. I requested nursing staff again try to place an IV for p.r.n. IV Ativan.
[2021-02-24] MEDS: diazePAM INJ (*CRX) 10 MG/2 ML SYRINGE 5 MG IM (01:53)
[2021-02-24] MEDS: chlordiazePOXIDE (*CRX) 25 MG CAPSULE 50 MG PO ×4 (01:53→20:31)
[2021-02-24] MEDS: LORazepam INJ (*CRX) 2 MG/ML VIAL 1 MG IV PUSH ×3 (04:59→19:32)
[2021-02-24] MEDS: FOLIC ACID 1 MG TABLET PO (08:05)
[2021-02-24] MEDS: METOPROLOL TARTRATE 50 MG TAB PO ×2 (08:05→20:31)
[2021-02-24] MEDS: THIAMINE HCL 100 MG TABLET PO (08:05)
[2021-02-24] MEDS: lisinopriL 5 MG TABLET PO (08:05)
[2021-02-24 08:53] LABS: Hematocrit 42.4 % (42.0-52.0); Hemoglobin 13.2 g/dL (14.0-18.0); Mean Corpuscular HGB Conc 31.1 g/dl (32-36); Mean Corpuscular Hemoglobin 33.2 pg (26-34); Mean Corpuscular Volume 106.8 fl (80-100); Mean Platelet Volume 11.2 fl (7.4-10.4); Platelet Count Result 96 k/mm3 (150-375); Red Blood Count 3.97 M/mm3 (4.6-6.20); Red Cell Distribution Width 14.5 % (11.5-14.5); White Blood Count 2.1 K/mm3 (4.5-10.0)
[2021-02-24 09:23] LABS: Alanine Aminotransferase 43 U/L (4-50); Albumin Level 3.5 g/dL (3.5-5.1); Alkaline Phosphatase 296 U/L (38-126); Anion Gap 9 mmol/L (8-16); Aspartate Amino Transferase 60 U/L (17-59); Bilirubin,Total 3.4 mg/dL (0.2-1.3); Blood Urea Nitrogen 15 mg/dL (9-20); Calcium 9.4 mg/dL (8.4-10.2); Carbon Dioxide 20 mmol/L (22-30); Chloride 102 mmol/L (98-107); Estimated CRCL calculation 84 ml/min; Estimated Glomerular Filt Rate > 60; Glucose 102 mg/dL (65-110); Potassium 4.1 mmol/L (3.4-5.0); Sodium 131 mmol/L (137-145)
[2021-02-24] MEDS: ALPRAZolam (*CRX) 0.25 MG TABLET PO ×3 (10:21→21:24)
--- NOTE | 2021-02-24 12:21 | PM.IMPN ---
Progress Note: A&P Assessment and Plan (1) Atrial fibrillation with RVR: Code(s): I48.91 - Unspecified atrial fibrillation Status: Acute Assessment and Plan: Chronic afib S/p Cardizem drip Rate controlled Cardiology following, recommendation apprecaited Metoprolol 25 mg BID initiated per cards Eliquis initiated and ASA stopped PLT 75, monitor Echocardiogram--> EF 40-45% TSH wnl Tele monitoring (2) Elevated LFTs: Code(s): R79.89 - Other specified abnormal findings of blood chemistry Status: Acute Assessment and Plan: Likely 2/2 alcohol abuse Hepatic steatosis noted CT scan Right upper quadrant ultrasound has been ordered-->diffuse hepatic steatosis GGT elevated Hepatitis panel negative (3) Elevated CK: Code(s): R74.8 - Abnormal levels of other serum enzymes Status: Acute Assessment and Plan: Likely mild rhabdomyolysis from being on the ground for unknown length of time CK 272-->244--> 162 02/22 S/p IVF (4) Generalized weakness: Code(s): R53.1 - Weakness Status: Acute Assessment and Plan: Multifactorial physical deconditioning He reports he is very sedentary at home has difficulty getting around Fall precautions implemented PT/OT Care coordination following Likely will return home on d/c, but based on his reports of not being able to dress or clean himself at home, may need to consider options for care (5) Daily consumption of alcohol: Code(s): Z78.9 - Other specified health status Status: Acute Assessment and Plan: Patient reportedly drank about 5 beers each day but quit drinking 1.5 weeks ago Spoke to his SO today, and she reports that the pt drank vodka 1-2 days before admission 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 (7) Abnormal CT scan: Code(s): R93.89 - Abnormal findings on diagnostic imaging of other specified body structures Status: Acute Assessment and Plan: CT abdomen/pelvis showed diffuse retroperitoneal edema with some calcification at the tail the pancreas, concerning for acute on chronic pancreatitis Denies abdominal pain Tolerating his diet Lipase is within normal limits No further intervention at this time May benefit from GI evaluation as an outpatient. (8) Dehydration: Code(s): E86.0 - Dehydration Status: Acute Assessment and Plan: IVF overnight poor appetite Encouraged po intake Monitor (9) Congestive heart failure: Code(s): I50.9 - Heart failure, unspecified Status: Acute Assessment and Plan: ECHO-->EF 40-45% BB, ACEI increased per cardiology Monitor (10) Hyponatremia: Code(s): E87.1 - Hypo-osmolality and hyponatremia Status: Acute Assessment and Plan: Na+ 130-->131 today Suspect 2/2 dehydration Will restart IVF Will recheck in a.m. Subjective Date/time seen: 02/24/21 12:21 Interval history: pt seen and evaluated; overnight; pt was agitated with some mild confusion and DTs; transferred to medical floor; still some what anxious during exam Exam Const: General: cooperative, alert and awake Orientation/consciousness: patient oriented x3 HENMT: Head: normocephalic and atraumatic Ears: hearing grossly normal bilaterally and external ears normal Face and sinus: face symmetric Mouth: Yes Normal oral and palatal mucosa present Eyes: EOM: EOMs intact bilaterally Neck: Neck: full ROM, trachea midline and no JVD Resp: Effort & Inspection: normal respiratory effort Auscultation: clear to auscultation bilaterally Cardio: Jugular venou
--- NOTE | 2021-02-24 13:30 | PM.PNCARD ---
Progress Note: A&P Additional Plan 65-year-old man with: Persistent atrial fibrillation of uncertain chronicity. Heart rate is controlled and he is anticoagulated. Decision to anticoagulate this alcoholic patient is of some concern in my opinion. None the less he is tolerating this so far is stable and appears to be asymptomatic. This will be followed after discharge. At this point there is no plan to attempt cardioversion Destin Stewart MD [facility] Subjective Date/time seen: Date of service:02/24/21 13:30 Interval history: 65 yo admitted for atrial fibrillation Date of service 02/24/2021: Patient resting comfortably appears to be asymptomatic watching television. Telemetry demonstrates rate controlled atrial fibrillation heart rate in the 90s. Exam Narrative: Awake alert. Appears stated age Const: General: comfortable and no acute distress; No confusion Orientation/consciousness: No confusion HENMT: General nose exam: Normal nares present Eyes: Sclera: sclerae normal Neck: Neck: supple and no JVD Chest: Other: No reproducible chest wall pain to palpation Resp: Auscultation: clear to auscultation bilaterally Cardio: Rate: tachycardic Rhythm: abnormal rhythm irregularly irregular GI: Auscultation: normal bowel sounds Skin: General skin exam: normal color Neuro: General: No confusion Cranial nerves: Yes Normal hearing present Cognition (Neuro): normal cognition Speech: normal speech Extrem: General: normal to inspection and edema (Mild bilateral lower extremity edema) Psych: Affect: normal affect Objective Data Vital Signs Vital Signs: Vital Signs - 24 hr 02/23/21 16:00 02/23/21 19:36 02/23/21 20:00 Temperature 36.4 C 37.0 C Pulse Rate 98 112 H 115 H Pulse Rate [Apical Monitor] 112 H Respiratory Rate 24 H 18 18 Blood Pressure 104/65 127/88 127/88 Pulse Oximetry 97 96 96 02/23/21 20:07 02/23/21 21:58 02/23/21 22:53 Temperature 36.1 C L Pulse Rate 112 H 108 H 93 Pulse Rate [Apical Monitor] Respiratory Rate 18 Blood Pressure 111/68 Pulse Oximetry 94 02/24/21 00:00 02/24/21 02:16 02/24/21 04:00 Temperature 36.2 C L 36.6 C Pulse Rate 89 97 87 Pulse Rate [Apical Monitor] Respiratory Rate 18 18 Blood Pressure 117/63 123/80 Pulse Oximetry 99 95 02/24/21 08:00 02/24/21 08:05 02/24/21 09:00 Temperature Pulse Rate 103 H 107 H Pulse Rate [Apical Monitor] 103 H Respiratory Rate Blood Pressure Pulse Oximetry 02/24/21 10:33 02/24/21 10:52 02/24/21 12:00 Temperature 36.1 C L Pulse Rate 69 105 H Pulse Rate [Apical Monitor] Respiratory Rate 18 Blood Pressure 109/72 103/81 Pulse Oximetry 97 Intake/Output Intake/Output: Intake & Output 02/21/21 02/22/21 02/23/21 02/24/21 23:59 23:59 23:59 23:59 Intake Total 1395 2640 2200 440 Output Total 200 1365 400 800 Balance 1195 1275 1800 -360 Meds/Results Medications: Active Medications Generic Name Dose Route Start Last Admin Trade Name Freq PRN Reason Stop Dose Admin Acetaminophen 650 mg 02/20/21 14:46 Acetaminophen 325 Mg Tablet PO Q4H PRN Mild Pain (1-3) Al Hydrox/Mg Hydrox/Simethicone 30 ml 02/20/21 14:46 Mag Hydrox/Al Hydrox/Simeth 30 Ml Udc PO Q6H PRN Indigestion Alprazolam 0.25 mg 02/20/21 23:15 02/24/21 10:21 Alprazolam (*Crx) 0.25 Mg Tablet PO 0.25 mg TID PRN Administration Anxiety Chlordiazepoxide HCl 50 mg 02/24/21 01:25 02/24/21 06:23 Chlordiazepoxide (*Crx) 25 Mg Capsule PO 50 mg Q8HR JANET Administration Folic Acid 1 mg 02/21/21 09:00 02/24/21 08:05 Folic Acid 1 Mg Tablet PO 1 mg DAILY JANET Administration Thiamine HCl 100 mg/ Folic 1,013.2 mls @ 100 mls/hr 02/24/21 12:30 Acid 1 mg/ Multivitamins 5 ml/ IV CONT 02/24/21 22:37 Multivitamins 5 ml/ Magnesium .Q10H8M ONE Sulfate 1 gm/ Dextrose/Sodium Chloride Lisinopril 5 mg 02/24/21 09:00 02/24/21 08:05
[2021-02-24] MEDS: THIAMINE HCL INJ 100 MG, FOLIC ACID INJ 1 MG, MULTIVITAMINS-12 INJ VIAL 1 5 ML, MULTIVI... IV CONT (13:47)
[2021-02-24] MEDS: RIVAROXABAN 20 MG TABLET PO (17:10)
[2021-02-25] VITALS (10 sets, daily range): BP systolic 104–151; BP diastolic 66–85; PULSE 70–92; RESP 16–20; TEMP 36.2–37.1; O2SAT 93–98
[2021-02-25] MEDS: ALPRAZolam (*CRX) 0.25 MG TABLET PO ×2 (04:15→09:26)
[2021-02-25] MEDS: chlordiazePOXIDE (*CRX) 25 MG CAPSULE 50 MG PO ×3 (06:03→20:34)
[2021-02-25 06:14] LABS: Basophils Percent Auto 1.5 % (0.2-1.2); Eosinophils Absolute Auto 0.1 K/mm3 (0-0.3); Eosinophils Percent Auto 2.5 % (0-4.4); Hematocrit 42.2 % (42.0-52.0); Hemoglobin 13.1 g/dL (14.0-18.0); Immature Granulocyte Absolute 0.02 K/mm3 (0.00-0.031); Immature Platelet Fraction Pct 13.2 % (0.9-11.2); Lymphocytes Absolute Auto 1.19 K/mm3 (0.9-3.2); Lymphocytes Percent Auto 59.5 % (18.3-44.2); Mean Corpuscular Hemoglobin 32.7 pg (26-34); Mean Corpuscular Volume 105.2 fl (80-100); Mean Platelet Volume 11.8 fl (7.4-10.4); Monocytes Absolute Auto 0.5 K/mm3 (0.1-0.6); Monocytes Percent Auto 26.5 % (2.6-8.5); Neutrophils Absolute Auto 0.2 K/mm3 (1.3-6.7); Platelet Count Result 110 k/mm3 (150-375); Red Blood Count 4.01 M/mm3 (4.6-6.20); Red Cell Distribution Width 14.5 % (11.5-14.5)
[2021-02-25 06:32] LABS: Anion Gap 7 mmol/L (8-16); Blood Urea Nitrogen 14 mg/dL (9-20); Calcium 9.2 mg/dL (8.4-10.2); Carbon Dioxide 22 mmol/L (22-30); Chloride 106 mmol/L (98-107); Estimated CRCL calculation 84 ml/min; Estimated Glomerular Filt Rate > 60; Glucose 109 mg/dL (65-110); Sodium 135 mmol/L (137-145)
[2021-02-25 07:14] LABS: Platelet Estimate Decreased (Adequate)
[2021-02-25 07:15] LABS: Atypical Lymphocytes Present
[2021-02-25] MEDS: lisinopriL 5 MG TABLET PO (08:14)
[2021-02-25] MEDS: THIAMINE HCL 100 MG TABLET PO (08:14)
[2021-02-25] MEDS: FOLIC ACID 1 MG TABLET PO (08:14)
[2021-02-25] MEDS: METOPROLOL TARTRATE 50 MG TAB PO ×2 (08:14→20:33)
--- NOTE | 2021-02-25 08:30 | PM.IMPN ---
Progress Note: A&P Assessment and Plan (1) Atrial fibrillation with RVR: Code(s): I48.91 - Unspecified atrial fibrillation Status: Acute Assessment and Plan: Chronic afib S/p Cardizem drip Rate controlled Cardiology following, recommendation appreciated Metoprolol 25 mg BID initiated per cards Eliquis initiated and ASA stopped PLT improving 110 today, monitor Echocardiogram--> EF 40-45% TSH wnl Tele monitoring (2) Elevated LFTs: Code(s): R79.89 - Other specified abnormal findings of blood chemistry Status: Acute Assessment and Plan: Likely 2/2 alcohol abuse Hepatic steatosis noted CT scan Right upper quadrant ultrasound has been ordered-->diffuse hepatic steatosis GGT elevated Hepatitis panel negative (3) Elevated CK: Code(s): R74.8 - Abnormal levels of other serum enzymes Status: Acute Assessment and Plan: Likely mild rhabdomyolysis from being on the ground for unknown length of time CK 272-->244--> 162 02/22 S/p IVF (4) Generalized weakness: Code(s): R53.1 - Weakness Status: Acute Assessment and Plan: Multifactorial physical deconditioning He reports he is very sedentary at home has difficulty getting around Fall precautions implemented PT/OT Care coordination following Likely will return home on d/c, but based on his reports of not being able to dress or clean himself at home, may need to consider options for care (5) Daily consumption of alcohol: Code(s): Z78.9 - Other specified health status Status: Acute Assessment and Plan: Patient reportedly drank about 5 beers each day but quit drinking 1.5 weeks ago Spoke to his SO today, and she reports that the pt drank vodka 1-2 days before admission 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 (7) Abnormal CT scan: Code(s): R93.89 - Abnormal findings on diagnostic imaging of other specified body structures Status: Acute Assessment and Plan: CT abdomen/pelvis showed diffuse retroperitoneal edema with some calcification at the tail the pancreas, concerning for acute on chronic pancreatitis Denies abdominal pain Tolerating his diet Lipase is within normal limits No further intervention at this time May benefit from GI evaluation as an outpatient (8) Dehydration: Code(s): E86.0 - Dehydration Status: Acute Assessment and Plan: IVF overnight poor appetite Encouraged po intake Monitor (9) Congestive heart failure: Code(s): I50.9 - Heart failure, unspecified Status: Acute Assessment and Plan: ECHO-->EF 40-45% Continue BB and ACEI Monitor (10) Hyponatremia: Code(s): E87.1 - Hypo-osmolality and hyponatremia Status: Acute Assessment and Plan: Na+ 130-->131-->135 today Suspect 2/2 dehydration Will restart IVF Will recheck in a.m. (11) Acquired pancytopenia: Code(s): D61.818 - Other pancytopenia Status: Acute Assessment and Plan: Likely 2/2 alcohol abuse Strongly advised cessation Monitor Follow outpatient Subjective Date/time seen: 02/25/21 08:30 Interval history: pt seen and evaluated; overnight; pt's agitation improving; no acute events overnight; calm and cooperative Review of Systems Review of Systems: All systems reviewed & are unremarkable except as noted in HPI and below Exam Const: General: cooperative, alert and awake Orientation/consciousness: patient oriented x3 HENMT: Head: normocephalic and atraumatic Ears: hearing grossly normal bilaterally and externa
--- NOTE | 2021-02-25 12:37 | PM.PNCARD ---
Progress Note: A&P Additional Plan 65-year-old man with: Atrial fibrillation of uncertain chronicity also in the setting of alcoholism. Rate control and anticoagulation are being provided as mentioned in the notes. He is tolerating this well as of this time. Cardiac-sanchez he is stable enough for discharge. If and when he is discharged I will insure that follow-up in our office regarding his atrial fibrillation is arrange with Dr. Quinonez. No additional cardiac recommendations at this time Destin Stewart MD [facility] Subjective Date/time seen: Date of yfyowyg82/29/21 12:37 Interval history: 65 yo admitted for atrial fibrillation Date of service 02/24/2021: Patient resting comfortably appears to be asymptomatic watching television. Telemetry demonstrates rate controlled atrial fibrillation heart rate in the 90s. date of service 2020: Patient continues to be asymptomatic has rate controlled atrial fibrillating tolerating anticoagulation thus far. Patient unsure of discharge planned Exam Narrative: Awake alert. Appears stated age Const: General: comfortable and no acute distress; No confusion Orientation/consciousness: No confusion HENMT: General nose exam: Normal nares present Eyes: Sclera: sclerae normal Neck: Neck: supple and no JVD Chest: Other: No reproducible chest wall pain to palpation Resp: Auscultation: clear to auscultation bilaterally Cardio: Rate: tachycardic Rhythm: abnormal rhythm irregularly irregular GI: Auscultation: normal bowel sounds Skin: General skin exam: normal color Neuro: General: No confusion Cranial nerves: Yes Normal hearing present Cognition (Neuro): normal cognition Speech: normal speech Extrem: General: normal to inspection and edema (Mild bilateral lower extremity edema) Psych: Affect: normal affect Objective Data Vital Signs Vital Signs: Vital Signs - 24 hr 02/24/21 14:15 02/24/21 17:59 02/24/21 19:30 Temperature 36.3 C L 36.2 C L Pulse Rate 72 59 L Pulse Rate [Apical Monitor] 64 Respiratory Rate 22 H 18 Blood Pressure 121/65 102/67 Pulse Oximetry 99 99 02/24/21 20:31 02/24/21 20:58 02/25/21 00:00 Temperature 36.5 C Pulse Rate 90 71 Pulse Rate [Apical Monitor] 90 Respiratory Rate 22 H Blood Pressure 132/60 Pulse Oximetry 95 02/25/21 00:53 02/25/21 05:51 02/25/21 08:14 Temperature 37.1 C 36.6 C Pulse Rate 92 83 86 Pulse Rate [Apical Monitor] Respiratory Rate 20 18 Blood Pressure 107/73 119/80 Pulse Oximetry 94 93 02/25/21 10:23 Temperature 36.8 C Pulse Rate 91 Pulse Rate [Apical Monitor] Respiratory Rate 18 Blood Pressure 151/66 H Pulse Oximetry 98 Intake/Output Intake/Output: Intake & Output 02/22/21 02/23/21 02/24/21 02/25/21 23:59 23:59 23:59 23:59 Intake Total 2640 2200 2118.2 200 Output Total 1365 400 950 200 Balance 1275 1800 1168.2 0 Meds/Results Medications: Active Medications Generic Name Dose Route Start Last Admin Trade Name Freq PRN Reason Stop Dose Admin Acetaminophen 650 mg 02/20/21 14:46 Acetaminophen 325 Mg Tablet PO Q4H PRN Mild Pain (1-3) Al Hydrox/Mg Hydrox/Simethicone 30 ml 02/20/21 14:46 Mag Hydrox/Al Hydrox/Simeth 30 Ml Udc PO Q6H PRN Indigestion Alprazolam 0.5 mg 02/25/21 08:13 Alprazolam (*Crx) 0.5 Mg Tablet PO TID PRN Anxiety Chlordiazepoxide HCl 50 mg 02/24/21 01:25 02/25/21 06:03 Chlordiazepoxide (*Crx) 25 Mg Capsule PO 50 mg Q8HR JANET Administration Docusate Sodium 100 mg 02/25/21 12:05 Docusate Sodium 100 Mg Capsule PO Q12H PRN Constipation Folic Acid 1 mg 02/21/21 09:00 02/25/21 08:14 Folic Acid 1 Mg Tablet PO 1 mg DAILY JANET Administration Lisinopril 5 mg 02/24/21 09:00 02/25/21 08:14 Lisinopril 5 Mg Tablet PO 5 mg QAM JANET Administration Lorazepam 1 mg 02/24/21 01:22 02/24/21 19:32 Lorazepam Inj (*Crx) 2 Mg/Ml Vial IV PUSH
[2021-02-25] MEDS: DOCUSATE SODIUM 100 MG CAPSULE PO ×2 (14:04→20:34)
[2021-02-25] MEDS: ALPRAZolam (*CRX) 0.5 MG TABLET PO ×2 (14:07→18:29)
[2021-02-25] MEDS: LORazepam INJ (*CRX) 2 MG/ML VIAL 1 MG IV PUSH ×2 (15:33→20:37)
[2021-02-25] MEDS: RIVAROXABAN 20 MG TABLET PO (17:28)
[2021-02-26] VITALS (13 sets, daily range): BP systolic 93–148; BP diastolic 63–92; PULSE 50–101; RESP 18–28; TEMP 36.1–36.6; O2SAT 93–98
[2021-02-26] MEDS: ALPRAZolam (*CRX) 0.5 MG TABLET PO ×3 (03:38→21:10)
[2021-02-26 05:58] LABS: Hematocrit 42.1 % (42.0-52.0); Hemoglobin 13.3 g/dL (14.0-18.0); Immature Platelet Fraction Pct 13.2 % (0.9-11.2); Mean Corpuscular HGB Conc 31.6 g/dl (32-36); Mean Corpuscular Hemoglobin 33.6 pg (26-34); Mean Corpuscular Volume 106.3 fl (80-100); Mean Platelet Volume 11.8 fl (7.4-10.4); Platelet Count Result 133 k/mm3 (150-375); Red Blood Count 3.96 M/mm3 (4.6-6.20); Red Cell Distribution Width 14.5 % (11.5-14.5); White Blood Count 2.1 K/mm3 (4.5-10.0)
[2021-02-26 06:05] LABS: Anion Gap 8 mmol/L (8-16); Blood Urea Nitrogen 13 mg/dL (9-20); Calcium 9.2 mg/dL (8.4-10.2); Carbon Dioxide 23 mmol/L (22-30); Chloride 101 mmol/L (98-107); Estimated CRCL calculation 93 ml/min; Estimated Glomerular Filt Rate > 60; Glucose 108 mg/dL (65-110); Potassium 4.1 mmol/L (3.4-5.0); Sodium 132 mmol/L (137-145)
[2021-02-26] MEDS: chlordiazePOXIDE (*CRX) 25 MG CAPSULE 50 MG PO ×3 (06:06→21:10)
--- NOTE | 2021-02-26 08:58 | PM.PNCARD ---
Progress Note: A&P Assessment and Plan (1) Atrial fibrillation with RVR: Code(s): I48.91 - Unspecified atrial fibrillation Status: Acute Assessment and Plan: Unknown duration. He likely has had atrial fibrillation with rapid ventricular response for significant period time is and some heart failure because of it. Diltiazem drip has been stopped Increase metoprolol 50 mg p.o. b.i.d. Rate is reasonably controlled presently - 80's, 90's. 2D echocardiogram Doppler showed reduced systolic function, EF 40-45%, severe biatrial enlargement, no significant valve pathology. For now will initiate Xarelto at 20 mg daily but will need to ensure that he is not a significant fall risk and that he will be able to afford this medication. ASA has been stopped (2) Congestive heart failure: Code(s): I50.9 - Heart failure, unspecified Status: Acute Assessment and Plan: 2D echocardiogram Doppler showed reduced systolic function, EF 40-45%, severe biatrial enlargement, no significant valve pathology. Continue metoprolol 50mg bid Continue lisinopril 5mg daily Will need outpatient ischemic evaluation doses found (3) Hypertension: Code(s): I10 - Essential (primary) hypertension Status: Acute Assessment and Plan: At goal (4) Noncompliance: Code(s): Z91.19 - Patient's noncompliance with other medical treatment and regimen Status: Acute (5) History of stroke: Code(s): Z86.73 - Personal history of transient ischemic attack (TIA), and cerebral infarction without residual deficits Status: Acute (6) Nonsustained ventricular tachycardia: Code(s): I47.2 - Ventricular tachycardia Status: Resolved Assessment and Plan: Has not had any further occurrences of VT Subjective Date/time seen: 02/26/21 08:58 Cardiology follow up for Afib Date of service 02/26/2021: Orientation waxing and waning. Lethargic this morning. He's anxious. From a cardiac standpoint he is stable with rate controlled on Review of Systems Review of Systems: All systems reviewed & are unremarkable except as noted in HPI and below Constitutional: Constitutional: Denies fatigue, Denies headache(s) and Reports weakness Eyes: Eyes: Denies blurry vision ENT: Reports Normal hearing present, Denies headache(s) and Denies neck pain Cardiovascular: Cardiovascular: Denies chest pain, Reports pedal edema, Reports leg edema and Reports dyspnea Respiratory: Respiratory: Reports dyspnea Gastrointestinal: Gastrointestinal: Denies abdominal pain Genitourinary: Genitourinary: Denies dysuria and Denies urinary frequency Musculoskeletal: Musculoskeletal: Denies back pain, Denies neck pain and Denies numbness Integumentary/Breasts: Skin/Breast: Denies dry skin and Denies unusual bruising Neurologic: Reports Normal hearing present, Denies confusion, Denies headache(s), Denies numbness and Reports weakness Psychiatric: Psychiatric: Denies anxiety and Denies confusion Endocrine: Endocrine: Denies fatigue and Denies flushing Hematologic/Lymphatic: Hematologic/Lymphatic: Denies easy bleeding Allergic/Immunologic: Allergic/Immunologic: Denies GI upset with certain foods Exam Const: General: comfortable, no acute distress, anxious and confusion HENMT: General nose exam: Normal nares present Eyes: General: appearance normal, both eyes and all related structures Sclera: sclerae normal Neck: Neck: supple and no JVD Resp: Auscultation: clear to auscultation bilaterally Cardio: Rate: regular rate Rhythm: abnormal rhythm irregularly irregular GI: Auscultation: normal bowel sounds Skin: General skin exam: normal color Neuro: General: confusion Cranial nerves: Yes Normal hearing present Cognition (Neuro): normal cognition Speech: normal speech Extrem: General: normal to inspection and no edema Psych: Affect: Anxious affect present Objective Data Vital Signs
[2021-02-26] MEDS: FOLIC ACID 1 MG TABLET PO (09:23)
[2021-02-26] MEDS: METOPROLOL TARTRATE 50 MG TAB PO ×2 (09:23→21:10)
[2021-02-26] MEDS: DOCUSATE SODIUM 100 MG CAPSULE PO ×2 (09:23→21:10)
[2021-02-26] MEDS: lisinopriL 5 MG TABLET PO (09:23)
[2021-02-26] MEDS: THIAMINE HCL 100 MG TABLET PO (09:24)
[2021-02-26] MEDS: LORazepam INJ (*CRX) 2 MG/ML VIAL 1 MG IV PUSH (09:33)
--- NOTE | 2021-02-26 10:50 | PM.IMPN ---
Progress Note: A&P Assessment and Plan (1) Atrial fibrillation with RVR: Code(s): I48.91 - Unspecified atrial fibrillation Status: Acute Assessment and Plan: Chronic afib S/p Cardizem drip Rate controlled Cardiology following, recommendation appreciated Metoprolol 25 mg BID initiated per cards Eliquis initiated and ASA stopped PLT improving 110 today, monitor Echocardiogram--> EF 40-45% TSH wnl Tele monitoring (2) Elevated LFTs: Code(s): R79.89 - Other specified abnormal findings of blood chemistry Status: Acute Assessment and Plan: Likely 2/2 alcohol abuse Hepatic steatosis noted CT scan Right upper quadrant ultrasound has been ordered-->diffuse hepatic steatosis GGT elevated Hepatitis panel negative (3) Elevated CK: Code(s): R74.8 - Abnormal levels of other serum enzymes Status: Acute Assessment and Plan: Likely mild rhabdomyolysis from being on the ground for unknown length of time CK 272-->244--> 162 02/22 S/p IVF (4) Generalized weakness: Code(s): R53.1 - Weakness Status: Acute Assessment and Plan: Multifactorial physical deconditioning He reports he is very sedentary at home has difficulty getting around Fall precautions implemented PT/OT Care coordination following Likely will return home on d/c, but based on his reports of not being able to dress or clean himself at home, may need to consider options for care (5) Daily consumption of alcohol: Code(s): Z78.9 - Other specified health status Status: Acute Assessment and Plan: Patient reportedly drank about 5 beers each day but quit drinking 1.5 weeks ago Spoke to his SO today, and she reports that the pt drank vodka 1-2 days before admission 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 (7) Abnormal CT scan: Code(s): R93.89 - Abnormal findings on diagnostic imaging of other specified body structures Status: Acute Assessment and Plan: CT abdomen/pelvis showed diffuse retroperitoneal edema with some calcification at the tail the pancreas, concerning for acute on chronic pancreatitis Denies abdominal pain Tolerating his diet Lipase is within normal limits No further intervention at this time May benefit from GI evaluation as an outpatient (8) Dehydration: Code(s): E86.0 - Dehydration Status: Acute Assessment and Plan: Improved S/p IVF poor appetite Encouraged po intake Monitor (9) Congestive heart failure: Code(s): I50.9 - Heart failure, unspecified Status: Acute Assessment and Plan: ECHO-->EF 40-45% Continue BB and ACEI Monitor (10) Hyponatremia: Code(s): E87.1 - Hypo-osmolality and hyponatremia Status: Acute Assessment and Plan: Na+ 130-->131-->135-->132today Suspect 2/2 dehydration S/P IVF Will recheck in a.m. (11) Acquired pancytopenia: Code(s): D61.818 - Other pancytopenia Status: Acute Assessment and Plan: Likely 2/2 alcohol abuse Strongly advised cessation Monitor Follow outpatient Subjective Date/time seen: 02/26/21 10:50 Interval history: pt seen and evaluated; resting in bed; denied any new complaints Review of Systems Review of Systems: All systems reviewed & are unremarkable except as noted in HPI and below Exam Const: General: cooperative, alert and awake Orientation/consciousness: patient oriented x3 HENMT: Head: normocephalic and atraumatic Ears: hearing grossly normal bilaterally and external ears normal Face and sinus: face symmetr
[2021-02-26] MEDS: RIVAROXABAN 20 MG TABLET PO (18:21)
[2021-02-27] VITALS (8 sets, daily range): BP systolic 100–137; BP diastolic 58–78; PULSE 84–104; RESP 16–20; TEMP 36.2–36.8; O2SAT 93–98
[2021-02-27] MEDS: ALPRAZolam (*CRX) 0.5 MG TABLET PO (06:12)
[2021-02-27] MEDS: chlordiazePOXIDE (*CRX) 25 MG CAPSULE 50 MG PO (06:12)
[2021-02-27 06:14] LABS: Anion Gap 6 mmol/L (8-16); Blood Urea Nitrogen 11 mg/dL (9-20); Calcium 9.1 mg/dL (8.4-10.2); Carbon Dioxide 26 mmol/L (22-30); Chloride 103 mmol/L (98-107); Estimated CRCL calculation 84 ml/min; Estimated Glomerular Filt Rate > 60; Glucose 100 mg/dL (65-110); Potassium 4.2 mmol/L (3.4-5.0); Sodium 135 mmol/L (137-145)
[2021-02-27] MEDS: lisinopriL 5 MG TABLET PO (08:09)
[2021-02-27] MEDS: METOPROLOL TARTRATE 50 MG TAB PO ×2 (08:09→21:24)
[2021-02-27] MEDS: THIAMINE HCL 100 MG TABLET PO (08:09)
[2021-02-27] MEDS: FOLIC ACID 1 MG TABLET PO (08:10)
[2021-02-27] MEDS: DOCUSATE SODIUM 100 MG CAPSULE PO ×2 (08:14→21:28)
[2021-02-27 09:04] LABS: Hematocrit 42.3 % (42.0-52.0); Hemoglobin 13.1 g/dL (14.0-18.0); Mean Corpuscular Hemoglobin 33.7 pg (26-34); Mean Corpuscular Volume 108.7 fl (80-100); Mean Platelet Volume 12.3 fl (7.4-10.4); Platelet Count Result 131 k/mm3 (150-375); Red Blood Count 3.89 M/mm3 (4.6-6.20); Red Cell Distribution Width 14.6 % (11.5-14.5)
[2021-02-27 09:23] LABS: Alanine Aminotransferase 35 U/L (4-50); Albumin Level 3.2 g/dL (3.5-5.1); Alkaline Phosphatase 280 U/L (38-126); Aspartate Amino Transferase 47 U/L (17-59); Bilirubin,Total 2.9 mg/dL (0.2-1.3)
--- NOTE | 2021-02-27 10:09 | PCOTNOTE ---
Attempted to see patient this am, however patient asleep upon entering and unable to arouse for functional OT at this time.
[2021-02-27 10:20] LABS: Lymphocytes Absolute Manual 1.22 K/mm3 (1.1-4.5); Monocytes Absolute Manual 0.24 K/mm3 (0.1-0.90); Monocytes Percent Manual 12 % (3-9); Neutrophils Percent Manual 27 % (46-73); Platelet Estimate Adequate (Adequate); Total Cells Counted 100
[2021-02-27 10:21] LABS: Atypical Lymphocytes Present
--- NOTE | 2021-02-27 13:18 | PM.IMPN ---
Progress Note: A&P Assessment and Plan (1) Atrial fibrillation with RVR: Code(s): I48.91 - Unspecified atrial fibrillation Status: Acute Assessment and Plan: Reports history of atrial fibrillation not on any treatment at home He has been seen in consultation by cardiology who is following Started on Cardizem drip which has been discontinued Rate is well controlled at this time Continue metoprolol 50 mg b.i.d. He has been started on Xarelto 20 mg daily. Need to assess his fall risk prior to discharge. CHADS2-VASC score is 2. HAS-BLED score is 4. Monitor on telemetry (2) Elevated LFTs: Code(s): R79.89 - Other specified abnormal findings of blood chemistry Status: Acute Assessment and Plan: Abdominal exam benign. ALP remains elevated with normalization of AST and ALT. GGT elevated. Likely related to hepatic steatosis which was apparent on CT and RUQ US. Hepatitis panel negative. (3) Congestive heart failure: Code(s): I50.9 - Heart failure, unspecified Status: Acute Assessment and Plan: Echo showed reduced systolic function with EF 40-45% Appreciate cardiology consultation Continue metoprolol 50 mg b.i.d. Continue lisinopril 5 mg daily (4) Generalized weakness: Code(s): R53.1 - Weakness Status: Acute Assessment and Plan: Likely multifactorial to include acute illness and physical deconditioning. He reports he is very sedentary at home has difficulty getting around. Fall precautions implemented Appreciate PT/OT consultation Care coordination following. Planning to return home on discharge with Home Health. (5) Daily consumption of alcohol: Code(s): Z78.9 - Other specified health status Status: Acute Assessment and Plan: Patient admits to drinking 5 beers per day, but stated he quit 1.5 weeks ago. Previous provider spoke with his significant other who reported that he had been drinking vodka daily 1-2 days prior to admission. 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 Continue with CIWA protocol. CIWA scores have been elevated up to 24. Improved now, most recently 10-12 Scheduled Librium, decreased to 25 mg q8h. Continue to taper Continue with thiamine and folic acid Educated on alcohol cessation (6) Abnormal CT scan: Code(s): R93.89 - Abnormal findings on diagnostic imaging of other specified body structures Status: Acute Assessment and Plan: CT abdomen/pelvis showed diffuse retroperitoneal edema with some calcification at the tail the pancreas, concerning for acute on chronic pancreatitis. He denies abdominal pain. He is tolerating his diet. Lipase is within normal limits. No further intervention at this time. May benefit from GI evaluation as an outpatient. (7) Acquired pancytopenia: Code(s): D61.818 - Other pancytopenia Status: Acute Assessment and Plan: Platelet count is improving. 131,000 today. Monitor CBC (8) Elevated CK: Code(s): R74.8 - Abnormal levels of other serum enzymes Status: Acute Assessment and Plan: Likely mild rhabdomyolysis from being on the ground for unknown length of time. CK 474 on arrival with normalization following IV fluids down to 162. (9) Hypoxia: Code(s): R09.02 - Hypoxemia Status: Acute Assessment and Plan: He was reportedly hypoxic in the upper 80s this morning and is now requiring 2 L supplemental O2. Will obtain CXR Continue supplemental O2 as needed with goal saturation 90% or above. Wean to goal. Subjective Date/time seen: 02/27/21 13:18 Interval history: Date of service: 02/27/21 Connor Roque is a 65 year old male with a history of atrial fibrillation, CVA, hypertension, renal cell carcinoma of right kidney s/p partial nephrectomy, anxiety, and daily alcohol abuse who is seen in follow up with atrial fibrillation and generalized we
[2021-02-27] MEDS: chlordiazePOXIDE (*CRX) 25 MG CAPSULE PO ×2 (14:03→21:26)
--- NOTE | 2021-02-27 14:23 | PCOTNOTE ---
Attempted to see patient twice this pm, however first attempt patient was eating lunch and second attempt, patient was in testing.
--- NOTE | 2021-02-27 15:31 | PC.NURSE ---
On 02/27/21, the student, Chandler Magdaleno, provided care and completed [facility] documentation on this patient. I have reviewed the student's documentation and agree with the findings.
[2021-02-27] MEDS: RIVAROXABAN 20 MG TABLET PO (17:36)
[2021-02-28] VITALS (11 sets, daily range): BP systolic 97–128; BP diastolic 66–84; PULSE 73–95; RESP 17–20; TEMP 36.1–36.6; O2SAT 77–96
[2021-02-28] MEDS: chlordiazePOXIDE (*CRX) 25 MG CAPSULE PO ×3 (05:27→21:14)
[2021-02-28 05:42] LABS: Hematocrit 44.3 % (42.0-52.0); Hemoglobin 13.5 g/dL (14.0-18.0); Mean Corpuscular HGB Conc 30.5 g/dl (32-36); Mean Corpuscular Hemoglobin 32.5 pg (26-34); Mean Corpuscular Volume 106.5 fl (80-100); Mean Platelet Volume 11.6 fl (7.4-10.4); Platelet Count Result 160 k/mm3 (150-375); Red Blood Count 4.16 M/mm3 (4.6-6.20); Red Cell Distribution Width 14.3 % (11.5-14.5)
[2021-02-28 05:57] LABS: Anion Gap 10 mmol/L (8-16); Blood Urea Nitrogen 11 mg/dL (9-20); Calcium 9.3 mg/dL (8.4-10.2); Carbon Dioxide 28 mmol/L (22-30); Chloride 98 mmol/L (98-107); Estimated CRCL calculation 84 ml/min; Estimated Glomerular Filt Rate > 60; Glucose 115 mg/dL (65-110); Potassium 4.5 mmol/L (3.4-5.0); Sodium 136 mmol/L (137-145)
[2021-02-28] MEDS: METOPROLOL TARTRATE 50 MG TAB PO (08:13)
[2021-02-28] MEDS: lisinopriL 5 MG TABLET PO (08:13)
[2021-02-28] MEDS: THIAMINE HCL 100 MG TABLET PO (08:13)
[2021-02-28] MEDS: FOLIC ACID 1 MG TABLET PO (08:13)
[2021-02-28] MEDS: DOCUSATE SODIUM 100 MG CAPSULE PO ×2 (08:15→21:14)
--- NOTE | 2021-02-28 11:41 | PM.DS ---
DS: Summary Time Spent with Patient Time attestation: Total time spent providing and/or coordinating discharge services: Exam Narrative: Mr. Roque is a chronically ill-appearing 65-year-old male who is lying supine in bed. He appears comfortable and is in NARD. Neuro: awake, alert and oriented x4, speech clear, no focal neuro deficits noted, no tremor HEENMT: normocephalic, atraumatic, EOMI, sclerae anicteric, moist oral mucosa Neck: supple, no lymphadenopathy Respiratory: clear to auscultation bilaterally, nonlabored breathing Cardio: regular rate, regular rhythm Abdomen: nondistended, normoactive bowel sounds, soft, nontender to palpation Extremities: no edema, erythema, or tenderness to palpation, DP pulses 2+ bilaterally Skin: no rashes or lesions, warm and dry Psych: appropriate mood and affect, judgment and insight intact DS: Data Data Completed and Pending Labs on day of discharge: Labs from last 24 hours 02/28/21 02/28/21 05:33 05:33 WBC 3.0 L RBC 4.16 L Hgb 13.5 L Hct 44.3 MCV 106.5 H MCH 32.5 MCHC 30.5 L RDW 14.3 Plt Count 160 MPV 11.6 H Sodium 136 L Potassium 4.5 Chloride 98 Carbon Dioxide 28 Anion Gap 10 BUN 11 Creatinine 1.00 Estim Creat Clear Calc 84 Estimated GFR > 60 Glucose 115 H Calcium 9.3 Discharge Plan Discharge Attending physician on discharge: Sienna Jaeger Consulting providers: Dimitrios Alegre ; Luiz Quinonez Discharging Clinician: Tricia Holley Patient Disposition: Home Health Service Discharge Instructions: Per Care Coordination: [facility] has been arranged to follow at discharge. [facility] will follow for RN and PT/OT eval and treat. Nursing please fax discharge paperwork to [phone]. [facility] can be reached at [phone]. Hospitalist discharge instructions: Use caution at home to avoid falls. Rise slowly from a seated or lying position and take a pause before getting up. Always use your walker or cane, even when going only short distances. Please be aware that this medication puts you at risk for bleeding. Is important to monitor for any signs or symptoms of bleeding which include blood in your stools, dark or tarry stools, blood in your urine, nosebleeds, bleeding from your gums, coughing up blood, vomiting blood, or large nonhealing bruises. Call your doctor or seek medical care if you experience any of the above. Call 911 if you have a fall, injury, or accident which puts you at risk for bleeding. It is extremely important that you quit drinking. You may benefit from group therapy, such as AA or speaking with a licensed counselor. Monitor for any signs of alcohol withdrawal including headache, nausea, tremor, anxiety, hallucinations , loss of consciousness, or seizure. Call your doctor or call 911 if you experience any symptoms. Continuing to drink with your medications can be harmful. Call your doctor or proceed to the emergency department if you have any worrisome signs or symptoms including nausea, vomiting, fever, chills, dizziness, lightheadedness, shortness of breath. Call 911 if you have any life-threatening symptoms. Medication information: You will begin taking a blood thinner called Xarelto (rivaroxaban) once per day. Monitor for any signs or symptoms of bleeding as noted above. Begin taking Librium (chlordiazepoxide) for 4 more days. Take 1 tablet two times per day for the next 2 days, then take 1 tablet once a day for 2 more days. Begin taking metoprolol 2 times per day Begin taking lisinopril 1 time per day Begin taking thiamine and folic acid daily You can try taking flonase (fluticasone) nasal spray for allergies/nasal congestion. Follow-up information: You should schedule an appointment with your primary care provider in 1-2 weeks to discuss your hospital stay. Call their office to schedule this appointment. Follow-up with cardiology. You have an
--- NOTE | 2021-02-28 16:01 | PM.IMPN ---
Progress Note: A&P Assessment and Plan (1) Atrial fibrillation with RVR: Code(s): I48.91 - Unspecified atrial fibrillation Status: Acute Assessment and Plan: Reports history of atrial fibrillation not on any treatment at home He has been seen in consultation by cardiology who is following Started on Cardizem drip which has been discontinued Rate is well controlled at this time Continue metoprolol 50 mg b.i.d. He has been started on Xarelto 20 mg daily. Understands bleeding risk and agreeable to proceed. (2) Elevated LFTs: Code(s): R79.89 - Other specified abnormal findings of blood chemistry Status: Acute Assessment and Plan: Abdominal exam benign. ALP remains elevated with normalization of AST and ALT. GGT elevated. Likely related to hepatic steatosis which was apparent on CT and RUQ US. Hepatitis panel negative. (3) Congestive heart failure: Code(s): I50.9 - Heart failure, unspecified Status: Acute Assessment and Plan: Echo showed reduced systolic function with EF 40-45% Appreciate cardiology consultation Continue metoprolol 50 mg b.i.d. Continue lisinopril 5 mg daily (4) Generalized weakness: Code(s): R53.1 - Weakness Status: Acute Assessment and Plan: Likely multifactorial to include acute illness and physical deconditioning. He reports he is very sedentary at home and has difficulty getting around. Fall precautions implemented Appreciate PT/OT consultation Care coordination following. Planning to return home on discharge with Home Health. (5) Daily consumption of alcohol: Code(s): Z78.9 - Other specified health status Status: Acute Assessment and Plan: Patient admits to drinking 5 beers per day, but stated he quit 1.5 weeks ago. Previous provider spoke with his significant other who reported that he had been drinking vodka daily 1-2 days prior to admission. 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 Continue with CIWA protocol. CIWA scores have been elevated up to 24. Improved now, most recently 1-5 Scheduled Librium, decreased to 25 mg q8h. Continue to taper down to 25 mg q12h tomorrow Continue with thiamine and folic acid Educated on alcohol cessation (6) Abnormal CT scan: Code(s): R93.89 - Abnormal findings on diagnostic imaging of other specified body structures Status: Acute Assessment and Plan: CT abdomen/pelvis showed diffuse retroperitoneal edema with some calcification at the tail the pancreas, concerning for acute on chronic pancreatitis. He denies abdominal pain. He is tolerating his diet. Lipase is within normal limits. No further intervention at this time. May benefit from GI evaluation as an outpatient. (7) Acquired pancytopenia: Code(s): D61.818 - Other pancytopenia Status: Acute Assessment and Plan: Platelet count has normalized today Monitor CBC (8) Elevated CK: Code(s): R74.8 - Abnormal levels of other serum enzymes Status: Acute Assessment and Plan: Likely mild rhabdomyolysis from being on the ground for unknown length of time. CK 474 on arrival with normalization following IV fluids down to 162. (9) Hypoxia: Code(s): R09.02 - Hypoxemia Status: Acute Assessment and Plan: Yesterday he was noted to be hypoxic in the upper 80s and required 2 L supplemental O2. CXR with no acute findings with bibasilar subsegmental atelectasis. He was weaned to room air. Today he was noted to be SOB while walking with therapy and was found to be hypoxic at 77%. CTA evaluated which was negative for PE. No other acute findings, no evidence of chronic lung disease. Echo reviewed with mildly reduced EF, which could contribute. No evidence of intracardiac shunt. May be an ongoing issue in which he has had ZACARIAS for some time, though he is a somewhat poor historian to obtain this information.
[2021-02-28] MEDS: RIVAROXABAN 20 MG TABLET PO (17:14)
[2021-02-28] MEDS: FLUTICASONE PROPIONATE 0.05% NA SPR 16 GM BTL (*BKC) 1 SPRAY NASAL (20:47)
[2021-03-01] VITALS (9 sets, daily range): BP systolic 120–139; BP diastolic 85–86; PULSE 76–94; RESP 20; TEMP 35.7–36.2; O2SAT 86–92
[2021-03-01 05:54] LABS: Hematocrit 46.8 % (42.0-52.0); Hemoglobin 14.4 g/dL (14.0-18.0); Mean Corpuscular HGB Conc 30.8 g/dl (32-36); Mean Corpuscular Hemoglobin 33.3 pg (26-34); Mean Corpuscular Volume 108.1 fl (80-100); Mean Platelet Volume 11.5 fl (7.4-10.4); Platelet Count Result 168 k/mm3 (150-375); Red Blood Count 4.33 M/mm3 (4.6-6.20); Red Cell Distribution Width 14.2 % (11.5-14.5); White Blood Count 3.5 K/mm3 (4.5-10.0)
[2021-03-01 06:00] LABS: Anion Gap 13 mmol/L (8-16); Blood Urea Nitrogen 8 mg/dL (9-20); Calcium 9.6 mg/dL (8.4-10.2); Carbon Dioxide 26 mmol/L (22-30); Chloride 96 mmol/L (98-107); Estimated CRCL calculation 93 ml/min; Estimated Glomerular Filt Rate > 60; Glucose 119 mg/dL (65-110); Sodium 135 mmol/L (137-145)
[2021-03-01] MEDS: chlordiazePOXIDE (*CRX) 25 MG CAPSULE PO (06:36)
[2021-03-01] MEDS: LORATADINE 5 MG TABLET PO (09:22)
[2021-03-01] MEDS: FOLIC ACID 1 MG TABLET PO (09:22)
[2021-03-01] MEDS: lisinopriL 5 MG TABLET PO (09:22)
[2021-03-01] MEDS: METOPROLOL TARTRATE 50 MG TAB PO (09:23)
[2021-03-01] MEDS: THIAMINE HCL 100 MG TABLET PO (09:24)
[2021-03-01] MEDS: FLUTICASONE PROPIONATE 0.05% NA SPR 16 GM BTL (*BKC) 1 SPRAY NASAL (09:24)
--- NOTE | 2021-03-01 09:52 | PM.PNCARD ---
Progress Note: A&P Assessment and Plan (1) Atrial fibrillation with RVR: Code(s): I48.91 - Unspecified atrial fibrillation <BENJAMIN Joy - Last Filed: 03/01/21 13:27> Status: Acute <BENJAMIN Joy - Last Filed: 03/01/21 13:27> Assessment and Plan: Unknown duration. He likely has had atrial fibrillation with rapid ventricular response for significant period time is and some heart failure because of it. Diltiazem drip has been stopped Continue metoprolol 50 mg p.o. b.i.d. Rate is reasonably controlled presently - 80's, 90's. 2D echocardiogram Doppler showed reduced systolic function, EF 40-45%, severe biatrial enlargement, no significant valve pathology. For now will initiate Xarelto at 20 mg daily while he is in the hospital with fall precautions in place. Patient denies history of falls at home but is somewhat of a poor historian. Will check with physical therapy further impression on his fall risk. Will need to ensure that he is not a significant fall risk when he is discharged home ASA has been stopped <BENJAMIN Joy - Last Filed: 03/01/21 13:27> (2) Congestive heart failure: Code(s): I50.9 - Heart failure, unspecified <BENJAMIN Joy - Last Filed: 03/01/21 13:27> Status: Acute <BENJAMIN Joy - Last Filed: 03/01/21 13:27> Assessment and Plan: 2D echocardiogram Doppler showed reduced systolic function, EF 40-45%, severe biatrial enlargement, no significant valve pathology. Continue metoprolol 50mg bid Continue lisinopril 5mg daily Sequential stockings in place Will need outpatient ischemic evaluation at some point <BENJAMIN Joy - Last Filed: 03/01/21 13:27> (3) Hypertension: Code(s): I10 - Essential (primary) hypertension <BENJAMIN Joy - Last Filed: 03/01/21 13:27> Status: Acute <BENJAMIN Joy - Last Filed: 03/01/21 13:27> Assessment and Plan: At goal <BENJAMIN Joy - Last Filed: 03/01/21 13:27> (4) Noncompliance: Code(s): Z91.19 - Patient's noncompliance with other medical treatment and regimen <BENJAMIN Joy - Last Filed: 03/01/21 13:27> Status: Acute <BENJAMIN Joy - Last Filed: 03/01/21 13:27> (5) History of stroke: Code(s): Z86.73 - Personal history of transient ischemic attack (TIA), and cerebral infarction without residual deficits <BENJAMIN Joy - Last Filed: 03/01/21 13:27> Status: Acute <BENJAMIN Joy - Last Filed: 03/01/21 13:27> (6) Nonsustained ventricular tachycardia: Code(s): I47.2 - Ventricular tachycardia <BENJAMIN Joy - Last Filed: 03/01/21 13:27> Status: Resolved <BENJAMIN Joy - Last Filed: 03/01/21 13:27> Assessment and Plan: Has not had any further occurrences of VT <BENJAMIN Joy - Last Filed: 03/01/21 13:27> Additional Plan Attending addendum: I agree with the documentation and plan of care as outlined. <Mathieu Salvador MD - Last Filed: 03/01/21 16:42> Subjective Date/time seen: 03/01/21 09:52 <BENJAMIN Joy - Last Filed: 03/01/21 13:27> Interval history: Cardiology follow-up for atrial fibrillation Date of service 03/01/2021: he is more alert today. Not complaining of any palpitations, chest pain, shortness of breath although he does appear somewhat dyspneic. He says that his breathing is normal for him. <BENJAMIN Joy - Last Filed: 03/01/21 13:27> Review of Systems Review of Systems: All systems reviewed & are unremarkable except as noted in HPI and below <BENJAMIN Joy - Last Filed: 03/01/21 13:27> Constitutional: Constitutional: Denies fatigue, Denies headache(s) and Reports weakness <BENJAMIN Joy - Last Filed: 03/01/21 13:27> Eyes: Eyes: Denies blurry vision <BENJAMIN Joy - Last
--- NOTE | 2021-03-01 10:56 | HOMEO2EVAL ---
Evaluation was performed at [facility] Home Oxygen Evaluation RC: Home Oxygen (O2) Evaluation Start: 03/01/21 08:47 Freq: ONCE Status: Active Protocol: RPE Activity Type Activity Date Activity User E-Sign Co-Sign Detail Recorded Client Recorded Date Recorded By Document 03/01/21 09:15 TYREE [email or web address] 03/01/21 10:56 TYREE Document 03/01/21 09:30 TYREE [email or web address] 03/01/21 10:56 TYREE Document 03/01/21 09:32 TYREE [email or web address] 03/01/21 10:56 TYREE Document 03/01/21 09:33 TYREE [email or web address] 03/01/21 10:56 TYREE Document 03/01/21 09:34 TYREE [email or web address] 03/01/21 10:56 TYREE 03/01/21 03/01/21 03/01/21 09:15 09:30 09:32 Home O2 Evaluation Test Phase Resting Resting Exercise Oxygen Delivery Room Air Room Air Room Air Oxygen Flow Rate (L/min) Pulse Oximetry (90-100 %) 91 90 86 L Pulse Rate (60-100 beats/min) 78 76 Home Oxygen Evaluation Comments Treatment Charges O2 Evaluation - Inpatient 03/01/21 03/01/21 09:33 09:34 Home O2 Evaluation Test Phase Exercise Exercise Oxygen Delivery Nasal Cannula Nasal Cannula Oxygen Flow Rate (L/min) 1 2 Pulse Oximetry (90-100 %) 87 L 91 Pulse Rate (60-100 beats/min) 94 Home Oxygen Evaluation Comments PT REQUIRES 2 L WITH ACTIVITY Treatment Charges
--- NOTE | 2021-03-01 10:56 | PCDIET ---
Weekly nutritional screen. Patient is tolerating current diet, heart healthy which is appropriate, with adequate intake (100%x2, 50%x3). No weight loss reported. Pt looks well nourished. No nutritional needs at this time.
--- NOTE | 2021-03-01 12:59 | PCRCNOTE ---
PT REQUIRES 2 L WITH ACTIVITY, HOME O2 ARRANGED WITH [facility].
--- NOTE | 2021-03-01 13:46 | PCPTNOTE ---
RN states patient is very agitated today and request to hold on therapy at this time.
--- NOTE | 2021-03-01 14:10 | PC.NURSE ---
pt is agitated because he has been having providers speak to him about discharge today, he is confused, he has called 911 twice stating he wants to go home and we are holding him against his will, pt reassured
--- NOTE | 2021-03-01 14:10 | PM.DS ---
DS: Admitting Diagnosis Admitting Diagnosis Weakness, fall DS: Discharge Diagnosis Discharge Diagnosis (1) Atrial fibrillation with RVR: Code(s): I48.91 - Unspecified atrial fibrillation Status: Acute Assessment and Plan: Reports history of atrial fibrillation not on any treatment at home He was seen in consultation by cardiology Started on Cardizem drip and rate improved. He was transitioned to p.o. metoprolol tartrate 50 mg b.i.d. and rate was controlled with this. He has been started on Xarelto 20 mg daily. Educated on bleeding risk associated with this medication and patient agrees to proceed. He was evaluated by PT/OT and felt to be safe for ambulation with a walker and not at a significant fall risk. (2) Elevated LFTs: Code(s): R79.89 - Other specified abnormal findings of blood chemistry Status: Acute Assessment and Plan: Abdominal exam benign. ALP remained elevated with normalization of AST and ALT. GGT elevated. Likely related to hepatic steatosis which was apparent on CT and RUQ US. Hepatitis panel negative. Repeat CMP in 1 week (3) Congestive heart failure: Code(s): I50.9 - Heart failure, unspecified Status: Acute Assessment and Plan: Newly diagnosed systolic CHF, chronicity unknown. BNP 5000 on presentation. Echo showed reduced systolic function with EF 40-45% Appreciate cardiology consultation Started on metoprolol 50 mg b.i.d. Started on lisinopril 5 mg daily Follow-up with cardiology as an outpatient. Appointment was arranged (4) Generalized weakness: Code(s): R53.1 - Weakness Status: Acute Assessment and Plan: Likely multifactorial to include acute illness and physical deconditioning. He reports difficulty getting around and remaining sedentary at home Fall precautions implemented He was evaluated by PT/OT. As above, was able to ambulate using a walker Home health services were arranged (5) Daily consumption of alcohol: Code(s): Z78.9 - Other specified health status Status: Acute Assessment and Plan: Patient admits to drinking 5 beers per day, but stated he quit 1.5 weeks ago. His significant other reported that she found a bottle of vodka in the home and noted that he has been drinking 1-2 days prior to admission. He has a history of alcohol withdrawal seizures. CIWA protocol was initiated during hospitalization. CIWA scores were briefly elevated up to 24. He had improvement with scheduled Librium and CIWA scores remained <5. Continue with Librium taper. 25 mg b.i.d. x2 days, then 25 mg daily x2 days. Alcohol cessation was discussed at length. Patient reports plans to quit drinking and is motivated to do so. Discussed attending AA appointments. Also discussed that he cannot drink while taking Librium. He wished to proceed with Librium and reported he would no longer be drinking. His significant other reports that she has removed all alcohol from the home and told the attendant at the liquor store where he shops to no longer sell alcohol to him. Continue with thiamine and folic acid Alcohol cessation resources provided (6) Abnormal CT scan: Code(s): R93.89 - Abnormal findings on diagnostic imaging of other specified body structures Status: Acute Assessment and Plan: CT abdomen/pelvis showed diffuse retroperitoneal edema with some calcification at the tail the pancreas, concerning for acute on chronic pancreatitis. He denies abdominal pain. He was able to tolerate regular diet. Lipase within normal limits. No further intervention at this time. May benefit from GI evaluation as an outpatient should he develop symptoms. (7) Acquired pancytopenia: Code(s): D61.818 - Other pancytopenia Status: Acute Assessment and Plan: Platelet count normalized (8) Elevated CK: Code(s): R74.8 - Abnormal levels of other serum enzymes
--- NOTE | 2021-03-01 14:46 | PC.NURSE ---
call to pt's significant other to inform her of dc today, she states she also has oxygen at home and is familiar with it
== END 2021-03-01 15:35 | disposition home health service (06) | DRG 309 ==
LOC: ANHED 14:45 → ANHIMU 16:30 → ANH2MED 02-27 07:39 → ANHIMU 03-02 10:45
PROVIDERS: Emergency Medicine Emergency Medical Services; Nurse Practitioner Adult Health; Physician Assistant; Admitting Provider Internal Medicine; Emergency Provider General Practice; PCP Internal Medicine Gastroenterology; Visit Provider Family Medicine
DX: I48.20 Chronic atrial fibrillation, unspecified (principal); E87.1 Hypo-osmolality and hyponatremia; D61.818 Other pancytopenia; M62.82 Rhabdomyolysis; I50.20 Unspecified systolic (congestive) heart failure; R09.02 Hypoxemia; I11.0 Hypertensive heart disease with heart failure; F41.9 Anxiety disorder, unspecified; E86.0 Dehydration; K76.0 Fatty (change of) liver, not elsewhere classified; R93.89 Abnormal findings on diagnostic imaging of other specified body structures; K21.9 Gastro-esophageal reflux disease without esophagitis; I47.2 Ventricular tachycardia; F10.20 Alcohol dependence, uncomplicated; E66.9 Obesity, unspecified; Z68.34 Body mass index [BMI] 34.0-34.9, adult; Z91.19 Patient's noncompliance with other medical treatment and regimen; Z86.73 Personal history of transient ischemic attack (TIA), and cerebral infarction without residual deficits; Z85.53 Personal history of malignant neoplasm of renal pelvis
CPT/HCPCS: 36415; 70450; 71045; 71046; 71250; 71275; 74176; 76705; 80048; 80053; 80061; 80074; 80307; 81001; 82550; 82977; 83605; 83690; 83735; 83880; 84443; 84484; 85025; 85027; 85055; 85380; 85610; 85730; 87040; 93005; 93306; 93970; 94618; 96361; 96365; 96366; 96375; 97110; 97116; 97161; 97165; 97530; 97535; 99285; A9270; G0378; J2060; J3360; J3411; J3475; J7030; J7042; J7120; Q9967